=== PATIENT | male | born 1955 | race Caucasian/White ===

== ENCOUNTER 2018-06-06 16:09 | Inpatient (IN) | payer OTHER ==
[~2018-06-06] VITALS: Ht 175.3 cm; Wt 50.8 kg
--- NOTE | 2018-06-06 16:09 | NUR ---
PT BIBA BLS TO BED 10
[2018-06-06 16:16] VITALS: BP 112/80
--- NOTE | 2018-06-06 16:25 | NUR ---
Nedra pacheco in [facility] - 06/06/18 [address] UREÑA AT BEDSIDE
--- NOTE | 2018-06-06 16:26 | NUR ---
Patient being evaluated by physician at bedside.
[2018-06-06] MEDS ORDERED: NACL 0.9% 1,000 ML IV SCH (16:29)
--- NOTE | 2018-06-06 16:29 | NUR ---
JANET. PATIENT PRESENTS TO ED WITH WEAKNESS AND DIZZINESS x TODAY. PT STATES HE HAS NOT EATEN IN 2 DAYS. DENIES N/V/D; SKIN IS PINK/WARM/DRY; AAOX4 WITH EVEN AND STEADY GAIT; LUNGS CLEAR BL; HR EVEN AND REGULAR; PT DENIES ANY FEVER, CP, SOB, OR COUGH AT THIS TIME; PATIENT STATES PAIN OF 0/10 AT THIS TIME; VSS; PATIENT POSITIONED FOR COMFORT; HOB ELEVATED; BEDRAILS UP X2; BED DOWN. ER MD MADE AWARE OF PT STATUS.
[2018-06-06] MEDS ORDERED: MECLIZINE 25 MG TAB PO ONE (16:30)
--- NOTE | 2018-06-06 16:40 | NUR ---
Nedra pacheco in [facility] - 06/06/18 at [address]6 [address]
--- NOTE | 2018-06-06 16:41 | NUR ---
PT TO CT VIA KAVITA
[2018-06-06 17:21] LABS: BASOPHILS % (AUTO) 0.3 % (0.0-2.0); EOSINOPHILS % (AUTO) 0.2 % (0.0-4.0); HEMATOCRIT 32.2 % (36-52); HEMOGLOBIN 10.8 g/dL (12.0-18.0); LYMPHOCYTES % (AUTO) 26.8 % (20.5-51.1); MEAN CORPUSCULAR HEMOGLOBIN 35 pg (27-31); MEAN CORPUSCULAR HGB CONC 34 g/dL (33-37); MEAN CORPUSCULAR VOLUME 103.8 fL (80-94); MONOCYTES # (AUTO) 0.7 K/uL (0.8-1.0); MONOCYTES % (AUTO) 9.2 % (1.7-9.3); NEUTROPHILS # (AUTO) 4.7 K/uL (1.8-7.7); NEUTROPHILS % (AUTO) 63.5 % (42.2-75.2); PLATELET COUNT (AUTO) 196 K/uL (140-450); RED CELL DISTRIBUTION WIDTH 14.4 % (11.6-13.7); WHITE BLOOD COUNT (AUTO) 7.4 K/uL (4.8-10.8)
--- NOTE | 2018-06-06 17:30 | NUR ---
PATIENT RESTING COMFORTABLY.
[2018-06-06 17:43] LABS: ALBUMIN 2.5 g/dL (3.4-5.0); ANION GAP 26.1 (8-16); CARBON DIOXIDE 17.8 mmol/L (21-32); CREATININE 1.3 mg/dL (0.7-1.3); TOTAL BILIRUBIN 0.8 mg/dL (0.0-1.0)
[2018-06-06 17:48] LABS: POTASSIUM 2.9 mmol/L (3.5-5.1)
--- NOTE | 2018-06-06 18:00 | NUR ---
NOTED ABNORMALITY ON PATIENT PERINAL AREA, DR TERRAZAS INFORMED.
[2018-06-06] MEDS ORDERED: KCL 20 MEQ/WATER INJ PREMIX 200 ML IV ONE (18:25)
[2018-06-06] MEDS ORDERED: DOCUSATE SODIUM 100 MG GELCAP PO PRN (18:30)
[2018-06-06] MEDS ORDERED: HYDROcodone/APAP 7.5/325 MG 1 TAB PO PRN (18:30)
[2018-06-06] MEDS ORDERED: MORPHINE SULFATE 4 MG/ML SYR IVP PRN (18:30)
[2018-06-06] MEDS ORDERED: ONDANSETRON 4 MG/2 ML VIAL IM/IVP PRN (18:30)
[2018-06-06] MEDS ORDERED: ACETAMINOPHEN 325 MG TAB PO PRN (18:30)
[2018-06-06] MEDS ORDERED: VITA1TAB44 PO (19:00)
[2018-06-06] MEDS ORDERED: VITB1I PO (19:00)
[2018-06-06] MEDS ORDERED: OMEP40EC14 PO (19:00)
[2018-06-06] MEDS ORDERED: ASPI-1677 PO (19:00)
[2018-06-06] MEDS ORDERED: METF-350 PO (19:00)
[2018-06-06] MEDS ORDERED: MIRT30TA PO (19:00)
[2018-06-06] MEDS ORDERED: LEVE1000 PO (19:00)
[2018-06-06] MEDS ORDERED: LIPA1CAP8 PO (19:00)
[2018-06-06] MEDS ORDERED: VITD1000 PO (19:00)
[2018-06-06] MEDS ORDERED: GABA300C PO (19:02)
[2018-06-06] MEDS ORDERED: MELO15TA11 PO (19:03)
[2018-06-06] MEDS ORDERED: FERR324T11 PO (19:06)
[2018-06-06] MEDS ORDERED: MEGE40TA4 PO (19:06)
[2018-06-06] MEDS ORDERED: [UNRECOGNIZED DRUG - CODE] PO (19:06)
--- NOTE | 2018-06-06 19:11 | NUR ---
PT TAKEN TO FLOOR BY IJEOMA BROWN AND EMT GEOVANNY
[2018-06-06] MEDS ORDERED: INSU-1343 SQ (19:12)
[2018-06-06] MEDS ORDERED: LANTUS (19:12)
[2018-06-06 19:15] VITALS: BP 98/69
--- NOTE | 2018-06-06 19:15 | NUR ---
REPORT RECEIVED FROM ED NURSE AT BEDSIDE. PT IN STABLE CONDITION. AAOX4. INTRODUCED SELF TO PT. BOARD UPDATED. NO COMPLAINTS OF PAIN. NO SOB. IV SITE L WRIST 22G RUNNING NS@60ML/HR PATENT AND INTACT. SKIN WARM, DRY, AND INTACT WITH NO OPEN WOUNDS. BED LOCKED IN LOW POSITION. CALL LANGLEY WITHIN REACH. SAFETY PRECAUTIONS IN PLACE.
[2018-06-06 19:38] LABS: PROTHROMBIN TIME 12.6 secs (10.8-13.4)
[2018-06-06 19:39] LABS: APPEARANCE,URINE CLEAR (CLEAR); COLOR,URINE AMBER (YELLOW); PH,URINE 6.5 (5.0-9.0)
[2018-06-06 19:40] LABS: BILIRUBIN,URINE NEGATIVE (NEGATIVE); BLOOD, URINE NEGATIVE (NEGATIVE); LEUKOCYTE ESTERASE ,URINE NEGATIVE (NEGATIVE); NITRITE, URINE NEGATIVE (NEGATIVE); UGLUCOSE NEGATIVE (NEGATIVE)
[2018-06-06 19:44] LABS: BARBITURATE, URINE NEG. ng/ml (NEG <=200); BENZODIAZEPINE, URINE NEG. ng/mL (NEG <=200); CANNABINOID, URINE NEG. ng/mL (NEG <=50); COCAINE, URINE NEG. ng/mL (NEG <=300); OPIATE, URINE NEG. ng/mL (NEG <=2000); PHENCYCLIDINE SCREEN,URINE NEG. ng/mL (NEG <=25)
[2018-06-06 19:53] LABS: MAGNESIUM 0.9 mg/dL (1.8-2.4); PHOSPHORUS 3.6 mg/dL (2.5-4.9)
[2018-06-06 19:54] LABS: CHOL/HDL RATIO 1.7 (1-4.5); THYROID STIMULATING HORMONE 5.06 uIU/mL (0.34-3.74)
[2018-06-06] MEDS ORDERED: levETIRAcetam 500 MG TAB PO PRN (19:55)
[2018-06-06] MEDS: NACL 0.9% 1,000 ML IV SCH (20:29)
[2018-06-06] MEDS ORDERED: MAG SULF 2000 MG/WATER PREMIX 100 ML IV SCH (20:30)
[2018-06-06] MEDS ORDERED: MECLIZINE 25 MG TAB PO PRN (20:30)
[2018-06-06] MEDS ORDERED: DEXTROSE 50% 50 ML SYR IVP PRN (20:40)
--- NOTE | 2018-06-06 20:40 | NUR ---
POTASSIUM BAG 1 OF 2 HUNG AND RUNNING PIGGY BACK THROUGH 2 IV PUMPS. PT TOLERATING WELL. NO COMPLAINTS OF PAIN.
[2018-06-06] MEDS: metFORMIN 850 MG TAB PO SCH (20:45)
[2018-06-06] MEDS: levETIRAcetam 500 MG TAB PO SCH (20:45)
--- NOTE | 2018-06-06 20:45 | NUR ---
METFORMIN AND KEPPRA GIVEN PO. PT TOLERATED WELL. MAG RIDER TO BE HUNG AFTER POTASSIUM. BS 88. NO INSULIN COVERAGE NEEDED.
[2018-06-06 20:58] LABS: FREE T4 (FREE THYROXINE) 1.24 ng/dL (0.76-1.46)
[2018-06-06] MEDS: BLOOD GLUCOSE MONITORING 1 DEV DEV FS SCH (21:18)
--- NOTE | 2018-06-06 22:45 | NUR ---
POTASSIUM BAG 2 OF 2 HUNG AND RUNNING. PT TOLERATING WELL.
[2018-06-07] VITALS: BP 102/65
[2018-06-07 00:29] LABS: ANION GAP 21.1 (8-16); CARBON DIOXIDE 20.1 mmol/L (21-32); CREATININE 1.2 mg/dL (0.7-1.3); POTASSIUM 3.2 mmol/L (3.5-5.1)
[2018-06-07] MEDS ORDERED: MAGNESIUM OXIDE 400 MG TAB PO SCH ×2 (01:00→10:54)
--- NOTE | 2018-06-07 01:00 | NUR ---
MAG OX GIVEN PO. PT TOLERATED WELL.
--- NOTE | 2018-06-07 01:05 | NUR ---
MAG RIDER BAG 1 OF 2 HUNG AND RUNNING. PT TOLERATING WELL.
[2018-06-07] MEDS ORDERED: MAG SULF 2000 MG/WATER PREMIX 50 ML IV ONE (03:07)
--- NOTE | 2018-06-07 03:25 | NUR ---
MAG RIDER BAG 2 OR 2 HUNG AND RUNNING. PT TOLERATING WELL.
[2018-06-07 04:00] VITALS: BP 102/62
[2018-06-07] MEDS: NACL 0.9% 1,000 ML IV SCH ×3 (04:18→22:25)
[2018-06-07] MEDS: BLOOD GLUCOSE MONITORING 1 DEV DEV FS SCH ×4 (05:37→21:04)
--- NOTE | 2018-06-07 05:37 | NUR ---
PROTONIX GIVEN PO. PT TOLERATED WELL. BS 100. NO INSULIN COVERAGE NEEDED.
[2018-06-07] MEDS: PANTOPRAZOLE 40 MG TABEC PO SCH (05:38)
--- NOTE | 2018-06-07 05:45 | NUR ---
PT OFF THE FLOOR FOR A CHEST CT.
--- NOTE | 2018-06-07 06:15 | NUR ---
PATIENT BACK ON FLOOR. IV REINSERTED.
[2018-06-07 06:20] LABS: T4 (THYROXINE) 5.1 ug/dL (4.5-12.0)
--- NOTE | 2018-06-07 07:10 | NUR ---
REPORT GIVEN TO AM NURSE AT BEDSIDE. PT IN STABLE CONDITION.
--- NOTE | 2018-06-07 07:20 | NUR ---
RECEIVED PT ROM CHARGER OPERATOR HELPER NURSE, MAJO, PT IS AWAKE AND LYING ON THE BED, WITH SIDE RAILS UP AND CALL LIGHT WITHIN REACH. PT HAS AN IV LINE ON THE LEFT HAND G. 22 WITH NS 100ML.HR, INFUSING. NO SOB AND PT DENIES PAIN AT THIS TIME. WILL CONTINUE TO MONITOR PT.
[2018-06-07 08:00] VITALS: BP 98/58
--- NOTE | 2018-06-07 08:06 | NUR ---
PATIENT HAS BEEN SCREENED AND CATEGORIZED HIGH NUTRITION RISK. PATIENT WILL BE SEEN WITHIN 1-2 DAYS OF ADMISSION. 06/07/18-06/08/[address]
[2018-06-07 08:15] LABS: BASOPHILS % (AUTO) 0.3 % (0.0-2.0); EOSINOPHILS # (AUTO) 0.1 K/uL (0-0.4); EOSINOPHILS % (AUTO) 0.7 % (0.0-4.0); HEMATOCRIT 36.5 % (36-52); HEMOGLOBIN 12.2 g/dL (12.0-18.0); LYMPHOCYTES # (AUTO) 1.8 K/uL (2.0-11.5); LYMPHOCYTES % (AUTO) 20.6 % (20.5-51.1); MEAN CORPUSCULAR HEMOGLOBIN 34 pg (27-31); MEAN CORPUSCULAR HGB CONC 33 g/dL (33-37); MEAN CORPUSCULAR VOLUME 103.1 fL (80-94); MONOCYTES # (AUTO) 0.4 K/uL (0.8-1.0); MONOCYTES % (AUTO) 4.2 % (1.7-9.3); NEUTROPHILS # (AUTO) 6.5 K/uL (1.8-7.7); NEUTROPHILS % (AUTO) 74.2 % (42.2-75.2); PLATELET COUNT (AUTO) 188 K/uL (140-450); RED BLOOD CELL COUNT(AUTO) 3.54 MIL/uL (4.20-6.10); RED CELL DISTRIBUTION WIDTH 14.6 % (11.6-13.7); WHITE BLOOD COUNT (AUTO) 8.7 K/uL (4.8-10.8)
[2018-06-07] MEDS ORDERED: NITROGLYCERIN 0.4 MG TAB SL PRN (08:15)
--- NOTE | 2018-06-07 08:43 | NUR ---
URBANO FROM LAB CALLED AND REPORTED THE CRITICAL LAB VALUE OF THE PT, TROPONIN IS 0.074. ACKNOWLEDGED AND WILL INFORM
--- NOTE | 2018-06-07 08:50 | NUR ---
INFORMED DR. MORRISSEY OF PT'S CRITICAL TROPONIN VALUE OF 0.074, MD ACKNOWLEDGED AND MD TO SEE PAT.
[2018-06-07 08:53] LABS: ANION GAP 14.7 (8-16); POTASSIUM 3.7 mmol/L (3.5-5.1)
[2018-06-07 08:55] LABS: MAGNESIUM 2.2 mg/dL (1.8-2.4); PHOSPHORUS 1.9 mg/dL (2.5-4.9)
[2018-06-07] MEDS ORDERED: MELOXICAM 15 MG PO SCH (09:00)
[2018-06-07] MEDS ORDERED: LISINOPRIL 10 MG TAB PO SCH (09:00)
[2018-06-07] MEDS ORDERED: METOPROLOL 25 MG TAB PO SCH (09:00)
[2018-06-07] MEDS ORDERED: MAGNESIUM OXIDE 1000 MG PO SCH (09:00)
[2018-06-07] MEDS ORDERED: ASPIRIN 81 MG TAB.CHEW PO SCH (09:00)
[2018-06-07] MEDS: FERROUS GLUCONATE 324 MG TAB PO SCH (09:27)
[2018-06-07] MEDS: GABAPENTIN 300 MG CAP PO SCH ×3 (09:28→16:47)
[2018-06-07] MEDS: VIT-B COMP/VIT-C/FOLIC ACID 1 TAB PO SCH (09:28)
[2018-06-07] MEDS: metFORMIN 850 MG TAB PO SCH ×2 (09:28→21:03)
[2018-06-07] MEDS: CHOLECALCIFEROL 1,000 IU TAB PO SCH (09:29)
[2018-06-07] MEDS: ASPIRIN 81 MG TAB.CHEW PO SCH (09:30)
[2018-06-07] MEDS: levETIRAcetam 500 MG TAB PO SCH ×2 (09:30→21:03)
[2018-06-07] MEDS: MIRTAZAPINE 15 MG TAB PO SCH (09:30)
--- NOTE | 2018-06-07 09:34 | NUR ---
DR. ZARAGOZA CAME TOP THE PT'S ROOM AND SPOKE AND CHECKED THE PT, PT'S BP WAS CHECKED PRIOR TO GIVING MEDICATIONS. HOLD OFF FOR THE LISINOPRIL AND METOPROLOL BECAUSE BP IS 92/55, PULSE IS 72. DR. ZARAGOZA WAS INFORMED OF THE BP READING AND SAID TO HOLD OFF BP MEDS. ACKNOWLEDGED AND WILL CONTINUE TO MONITOR PT.
--- NOTE | 2018-06-07 10:43 | NUR ---
X-RAY OF THE RT SHOULDER IS BEING DONE TO PT NOW.
[2018-06-07 12:00] VITALS: BP 100/71
--- NOTE | 2018-06-07 14:45 | NUR ---
ULTRASOUND OF THE ABDOMEN IS BEING DONE TO THE PT NOW.
[2018-06-07 16:00] VITALS: BP 98/63
--- NOTE | 2018-06-07 16:06 | NUR ---
06/07/18 RD INITIAL ASSESSMENT COMPLETED PLEASE REFER TO NUTRITION ASSESSMENT UNDER CARE ACTIVITY FOR ESTIMATED NUTRITIONAL NEEDS. 1. CONTINUE CCHO 60 GM DIET TOLERATED 2. RECOMMEND SWALLOW EVALUATION FOR DIFFICULTY CHEWING AND SWALLOWING FOOD 3. RECOMMEND ENSURE MAX BID 4. RD TO FOLLOW-UP 2-3 DAYS, HIGH RISK ALEXIS CRUZ RD
--- NOTE | 2018-06-07 16:50 | NUR ---
PT IS AWAKE AND BLOOD GLUCOSE CHECKED WAS DONE AND RESULT IS 91, NO INSULIN COVERAGE NEEDED. PT WAS BEING ASSISTED TO THE BATHROOM BY MINDY CEDENO, PT HAD JUST FINISHED EAETING HER LUNCH AT THIS TIME.
--- NOTE | 2018-06-07 17:00 | NUR ---
PT WAS ASSISTED BY MINDY CEDENO, CLEANED AND MADE COMFORTABLE IN THE BED.
--- NOTE | 2018-06-07 18:28 | NUR ---
PT IS SLEEPING AT THIS TIME.
--- NOTE | 2018-06-07 18:58 | NUR ---
PT TOOK AND FINISHED THE ENSURE MAX DRINK AND PT WAS GIVEN A SANDWICH BECAUSE FOOD IN DINNER TRAY WAS NOT EATEN.
--- NOTE | 2018-06-07 19:10 | NUR ---
RECEIVED REPORT FROM DAY SHIFT NURSE NADIA-RN AT BEDSIDE. PT RESTING IN BED, AOX4 WITH MOMENTS OF CONFUSION. PT HAS AN IV LINE ON THE LEFT HAND G. 22 WITH NS 100ML.HR, INFUSING. ON ROOM AIR, TELE MONITORING, SKIN INTACT. AMBULATORY WITH ASSISTANCE- WALKING IN ROOM. DISCUSSED PLAN OF CARE AND PT VERBALIZED UNDERSTANDING. NO S/S OF RESPIRATORY DISTRESS OR DISCOMFORT NOTED AT THIS TIME. BED IN LOWEST POSITION, BED BREAKS ON, BOTH SIDE RAILS UP, BED ALARM ON, SEIZURE AND FALL PRECAUTIONS IN PLACE. BED SIDE TABLE AND CALL LIGHT ARE WITHIN REACH. WILL CONTINUE TO MONITOR.
[2018-06-07 20:00] VITALS: BP 106/70
--- NOTE | 2018-06-07 20:00 | NUR ---
VITAL SIGNS TAKEN AND TOLERATED WELL. BLOOD GLUCOSE 121-NO INSULIN COVERAGE NEEDED. NO S/S OF RESPIRATORY DISTRESS OR DISCOMFORT NOTED AT THIS TIME. WILL CONTINUE TO MONITOR.
--- NOTE | 2018-06-07 21:03 | NUR ---
SCHEDULED MEDICATION GIVEN AND TOLERATED WELL. NO S/S OF RESPIRATORY DISTRESS OR DISCOMFORT NOTED AT THIS TIME. WILL CONTINUE TO MONITOR.
--- NOTE | 2018-06-07 22:25 | NUR ---
NEW IVF HUNG. PT TOLERATED WELL. NO S/S OF RESPIRATORY DISTRESS OR DISCOMFORT NOTED AT THIS TIME. WILL CONTINUE TO MONITOR.
[2018-06-08] VITALS: BP 98/67
--- NOTE | 2018-06-08 | NUR ---
VITAL SIGNS TAKEN AND TOLERATED WELL. FOUND IV PUMP OFF AND BLOOD/NS LEAKING FROM IV SITE. IV NO LONGER FLUSHING. CHANGED BEDDING AND GOWN. REMOVED IV- CATHETER INTACT. CHARGE NURSE RHONDA INSERTED NEW IV SITE ON LEFT FA #24G- INFUSING WELL. NO S/S OF RESPIRATORY DISTRESS OR DISCOMFORT NOTED AT THIS TIME. WILL CONTINUE TO MONITOR.
--- NOTE | 2018-06-08 02:00 | NUR ---
PT CONTINUES TO SLEEP IN BED. NO S/S OF RESPIRATORY DISTRESS OR DISCOMFORT NOTED AT THIS TIME. WILL CONTINUE TO MONITOR.
[2018-06-08 04:00] VITALS: BP 103/68
--- NOTE | 2018-06-08 04:00 | NUR ---
VITAL SIGNS TAKEN AND TOLERATED WELL. NO S/S OF RESPIRATORY DISTRESS OR DISCOMFORT NOTED AT THIS TIME. WILL CONTINUE TO MONITOR.
[2018-06-08] MEDS: NACL 0.9% 1,000 ML IV SCH (04:56)
[2018-06-08] MEDS: PANTOPRAZOLE 40 MG TABEC PO SCH (05:30)
--- NOTE | 2018-06-08 05:30 | NUR ---
SCHEDULED MEDICATION GIVEN AND TOLERATED WELL. BLOOD GLUCOSE 95-NO INSULIN COVERAGE GIVEN. PT TOLERATED WELL. NO S/S OF RESPIRATORY DISTRESS OR DISCOMFORT NOTED AT THIS TIME. WILL CONTINUE TO MONITOR.
[2018-06-08] MEDS: BLOOD GLUCOSE MONITORING 1 DEV DEV FS SCH ×4 (05:33→21:23)
--- NOTE | 2018-06-08 07:34 | NUR ---
ENDORSED PT CARE TO DAY SHIFT NURSE ROSA-RN FOR CONTINUITY OF CARE.
--- NOTE | 2018-06-08 07:35 | NUR ---
REPORT RECIEVED FROM AWS CONSULTANT NURSE, PT SLEEPING QUIETLY IN NAD, RESP EVEN UNLABORED ON RA, AROUSES EASILY, DENIES ANY IMMEDIATE NEEDS, DENIES PAIN OR DISCOMFORT, POC REVIEWED, ALL SAFETY MEASURES IN PLACE, WILL CONTINUE TO MONITOR./
[2018-06-08 08:00] VITALS: BP 125/86
--- NOTE | 2018-06-08 08:40 | NUR ---
PT AWAKE ALERT, PT SPEAKS SLOWLY, O X4, MOVES SLOWLY ALL EXT X4, + GEN WEAKNESS, DENIES DIZZINESS OR LIGHT HEADEDNESS, DENIES CHEST PAIN, SKIN DRY SCALEY BUT INTACT, IVF INFUSING TO LEFT FA 24G, SITE WNL.
[2018-06-08] MEDS ORDERED: METOPROLOL SUCCINATE 50 MG TABER PO SCH (09:00)
[2018-06-08] MEDS: MAGNESIUM OXIDE 400 MG TAB PO SCH (09:09)
[2018-06-08] MEDS: metFORMIN 850 MG TAB PO SCH ×2 (09:09→21:16)
[2018-06-08] MEDS: levETIRAcetam 500 MG TAB PO SCH ×2 (09:11→21:16)
[2018-06-08] MEDS: VIT-B COMP/VIT-C/FOLIC ACID 1 TAB PO SCH (09:11)
[2018-06-08] MEDS: GABAPENTIN 300 MG CAP PO SCH ×3 (09:11→16:09)
[2018-06-08] MEDS: LISINOPRIL 5 MG TAB PO SCH (09:11)
[2018-06-08] MEDS: CHOLECALCIFEROL 1,000 IU TAB PO SCH (09:11)
[2018-06-08] MEDS: ASPIRIN 81 MG TAB.CHEW PO SCH (09:11)
[2018-06-08] MEDS: MIRTAZAPINE 15 MG TAB PO SCH (09:11)
[2018-06-08] MEDS: DEXT 5% / NACL 0.45% 1,000 ML IV SCH ×3 (09:19→23:32)
--- NOTE | 2018-06-08 09:19 | NUR ---
AM MEDS GIVEN, PT [place] PO PILLS WELL WITHOUT PROBLEM, PT RESTING QUIETLY IN NAD, RESP EVEN UNLABORED, DENIES ANY IMMEDIATE NEEDS, WILL CONTINUE TO MONTIOR.
[2018-06-08] MEDS: FERROUS GLUCONATE 324 MG TAB PO SCH (11:28)
[2018-06-08 12:00] VITALS: BP 107/76
--- NOTE | 2018-06-08 12:02 | NUR ---
OIL AND GAS PRINCIPAL note (bedside swallow evaluation completed) 10:35-11:25. Bedside swallow evaluation completed, please see report for details. OIL AND GAS PRINCIPAL provided pt with education regarding purpose of evaluation and rationale for recommendations. Pt verbalized understanding and agreement at this time. No family/caregivers present at this time. Recommend: 1) pureed textures (pt's baseline/preference due to ill-fitting dentures) 2) thin liquids 3) general aspiration precautions (including pt must be fully awake/alert/upright for any PO intakes, alternate small/slow bites and sips, stop giving PO if pt becomes less alert/SOB/coughing) 4) no further OIL AND GAS PRINCIPAL intervention indicated at this time. Physician may reorder if further concerns arise, as appropriate. G-codes: G1063-TX [id number] [id number] [facility] NOMS level 4. OIL AND GAS PRINCIPAL d/w RN (Renetta) prior to and following bedside swallow evaluation. OIL AND GAS PRINCIPAL also d/w battery recharger following bedside swallow evaluation.
--- NOTE | 2018-06-08 12:48 | NUR ---
PT SITTING UP EATING LUNCH PUREE, APPEARS IN NAD, DENIES PAIN OR DISCOMFORT, WILL CONTINUE TO MONTIOR
--- NOTE | 2018-06-08 13:30 | NUR ---
PT SON CALLED BACK, GÉNESIS CASTILLO [phone], VERBAL CONSENT OBTAINED FROM PATIENT TO SPEAK TO HIS SON, SON STATES HE LIVES IN [place], PATIENTS HAS RELATIVES NEARBY BUT DOES NOT GET ALONG WITH THEM, SO GÉNESIS SHOULD BE THE PRIMARY FAMILY CONTACT, GÉNESIS REPORTS THAT PT HAS CHRONIC PANCREATITIS FROM ALCOHOL ABUSE, HX SZ, TIA/CVA. WILL NOTIFY DR MORRISSEY. WILL NOTIFY ADMITTING OF FAMILY CONTACT INFO.
[2018-06-08 13:32] LABS: BASOPHILS % (AUTO) 0.4 % (0.0-2.0); EOSINOPHILS # (AUTO) 0.1 K/uL (0-0.4); EOSINOPHILS % (AUTO) 1.3 % (0.0-4.0); HEMATOCRIT 36.2 % (36-52); LYMPHOCYTES # (AUTO) 2.1 K/uL (2.0-11.5); LYMPHOCYTES % (AUTO) 31.1 % (20.5-51.1); MEAN CORPUSCULAR HEMOGLOBIN 34 pg (27-31); MEAN CORPUSCULAR HGB CONC 33 g/dL (33-37); MEAN CORPUSCULAR VOLUME 102.5 fL (80-94); MONOCYTES # (AUTO) 0.4 K/uL (0.8-1.0); MONOCYTES % (AUTO) 5.2 % (1.7-9.3); NEUTROPHILS # (AUTO) 4.2 K/uL (1.8-7.7); PLATELET COUNT (AUTO) 155 K/uL (140-450); RED BLOOD CELL COUNT(AUTO) 3.53 MIL/uL (4.20-6.10); RED CELL DISTRIBUTION WIDTH 14.3 % (11.6-13.7); WHITE BLOOD COUNT (AUTO) 6.8 K/uL (4.8-10.8)
[2018-06-08 13:43] LABS: ANION GAP 12.2 (8-16); CARBON DIOXIDE 25.9 mmol/L (21-32); CREATININE 0.9 mg/dL (0.7-1.3); POTASSIUM 3.1 mmol/L (3.5-5.1)
[2018-06-08] MEDS ORDERED: KCL 20 MEQ/WATER INJ PREMIX 100 ML IV SCH (15:00)
[2018-06-08 16:00] VITALS: BP 121/80
--- NOTE | 2018-06-08 16:30 | NUR ---
BEDSIDE GLUCOSE 139, NO INSULIN NEEDED PER SLIDING SCALE.
[2018-06-08 16:38] LABS: PHOSPHORUS 1.1 mg/dL (2.5-4.9)
[2018-06-08] MEDS ORDERED: LORazepam 1 MG TAB PO PRN (17:45)
[2018-06-08] MEDS ORDERED: MAG SULF 2000 MG/WATER PREMIX 50 ML IV SCH (18:00)
--- NOTE | 2018-06-08 18:45 | NUR ---
SCHEDULED MAG STARTED, IV SITE WNL, PT SITTING UP TALKING WITH SISTER AND BROTHER IN LAW AT BEDSIDE, DENIES IMMEDIATE NEEDS, WILL CONTINUE TO MONTIOR.
--- NOTE | 2018-06-08 19:15 | NUR ---
REPORT GIVEN TO CONTINUOUS MINER NURSE, PT IN STABLE CONDITION
--- NOTE | 2018-06-08 19:16 | NUR ---
RECEIVED REPORT FROM DAY SHIFT NURSE ROSA-RN AT BEDSIDE. PT RESTING IN BED, AOX4 WITH MOMENTS OF CONFUSION. PT HAS AN IV LINE ON THE LEFT FA #24G RUNNING NS 100ML.HR, INFUSING. ON ROOM AIR, TELE MONITORING, SKIN INTACT. AMBULATORY WITH ASSISTANCE- WALKING IN ROOM. DISCUSSED PLAN OF CARE AND PT VERBALIZED UNDERSTANDING. NO S/S OF RESPIRATORY DISTRESS OR DISCOMFORT NOTED AT THIS TIME. BED IN LOWEST POSITION, BED BREAKS ON, BOTH SIDE RAILS UP, BED ALARM ON, SEIZURE AND FALL PRECAUTIONS IN PLACE. BED SIDE TABLE AND CALL LIGHT ARE WITHIN REACH. WILL CONTINUE TO MONITOR.
[2018-06-08 20:00] VITALS: BP 100/69
--- NOTE | 2018-06-08 20:00 | NUR ---
VITAL SIGNS TAKEN AND TOLERATED WELL. BLOOD GLUCOSE 166- WILL ADMINISTER INSULIN COVERAGE. NO S/S OF RESPIRATORY DISTRESS OR DISCOMFORT NOTE AT THIS TIME. WILL CONTINUE TO MONITOR.
--- NOTE | 2018-06-08 20:10 | NUR ---
Frame Coverer Notes: I faxed to [facility] Patients clinical information, and MD Orders for Physical Therapy for short-term placement.
[2018-06-08] MEDS: SODIUM PHOS / POTASSIUM PHOS 1 PKT PDR PO SCH (21:16)
--- NOTE | 2018-06-08 21:16 | NUR ---
SCHEDULED MEDICATION GIVEN AND TOLERATED WELL. NO S/S OF RESPIRATORY DISTRESS OR DISCOMFORT NOTE AT THIS TIME. WILL CONTINUE TO MONITOR.
[2018-06-08] MEDS: INSULIN LISPRO SLIDING SCALE 100 UNITS/ML VIAL SUBQ PRN (21:23)
--- NOTE | 2018-06-08 21:23 | NUR ---
INSULIN COVERAGE GIVEN AND TOLERATED WELL. NO S/S OF RESPIRATORY DISTRESS OR DISCOMFORT NOTE AT THIS TIME. WILL CONTINUE TO MONITOR.
--- NOTE | 2018-06-08 23:32 | NUR ---
NEW BAG OF IVF HUNG. PT TOLERATED WELL. NO S/S OF RESPIRATORY DISTRESS OR DISCOMFORT NOTED AT THIS TIME. WILL CONTINUE TO MONITOR.
[2018-06-09] VITALS: BP 101/74
--- NOTE | 2018-06-09 | NUR ---
VITAL SIGNS TAKEN AND TOLERATED WELL. NO S/S OF RESPIRATORY DISTRESS OR DISCOMFORT NOTED AT THIS TIME. WILL CONTINUE TO MONITOR.
--- NOTE | 2018-06-09 02:00 | NUR ---
PT CONTINUES TO SLEEP. NO S/S OF RESPIRATORY DISTRESS OR DISCOMFORT NOTED AT THIS TIME. WILL CONTINUE TO MONITOR.
[2018-06-09 04:00] VITALS: BP 119/87
--- NOTE | 2018-06-09 04:00 | NUR ---
VITAL SIGNS TAKEN AND TOLERATED WELL. NO S/S OF RESPIRATORY DISTRESS OR DISCOMFORT NOTED AT THIS TIME. WILL CONTINUE TO MONITOR.
--- NOTE | 2018-06-09 06:00 | NUR ---
BLOOD GLUCOSE 94- NO INSULIN COVERAGE NEEDED.
[2018-06-09] MEDS: BLOOD GLUCOSE MONITORING 1 DEV DEV FS SCH ×4 (06:14→21:10)
[2018-06-09] MEDS: PANTOPRAZOLE 40 MG TABEC PO SCH (06:14)
--- NOTE | 2018-06-09 06:14 | NUR ---
SCHEDULED MEDICATION PROTONIX GIVEN AND TOLERATED WELL. NO S/S OF RESPIRATORY DISTRESS OR DISCOMFORT NOTED AT THIS TIME. WILL CONTINUE TO MONITOR.
--- NOTE | 2018-06-09 07:04 | NUR ---
ASSUMED CONTINUITY OF CARE. NO SIGNS AND SYMPTOMS OF ACUTE DISTRESS NOTED. INITIAL ASSESSMENT DONE. INITIAL ASSESSMENT DONE. KEEP COMFORTABLE ON BED. EXPLAINED DIAGNOSIS, PLAN OF CARE, PAIN MANAGEMENT TEACHING, USE OF CALL LIGHT/BED/TV/BATHROOM. VERBALIZED UNDERSTANDING. SEIZURE AND FALL PRECAUTION APPLIED. CALL LIGHT WITHIN REACH.
--- NOTE | 2018-06-09 07:04 | NUR ---
ENDORSED PT CARE TO DAY SHIFT NURSE VISH FOR CONTINUITY OF CARE.
--- NOTE | 2018-06-09 07:05 | NUR ---
Patient's Plan of Care was discussed and reviewed with TERRITORY SUPERVISOR: TOÑA DEL VALLE
[2018-06-09 07:32] LABS: MAGNESIUM 1.3 mg/dL (1.8-2.4)
[2018-06-09 07:33] LABS: ANION GAP 12.8 (8-16); CARBON DIOXIDE 26.1 mmol/L (21-32)
[2018-06-09 07:46] LABS: POTASSIUM 2.9 mmol/L (3.5-5.1)
[2018-06-09 08:00] VITALS: BP 111/80
[2018-06-09] MEDS ORDERED: KCL 20 MEQ/WATER INJ PREMIX 200 ML IV SCH (08:00)
[2018-06-09] MEDS ORDERED: MAG SULF 2000 MG/WATER PREMIX 100 ML IV SCH (08:00)
[2018-06-09 08:42] LABS: CREATININE 0.7 mg/dL (0.7-1.3)
[2018-06-09] MEDS: ASPIRIN 81 MG TAB.CHEW PO SCH (08:54)
[2018-06-09] MEDS: FERROUS GLUCONATE 324 MG TAB PO SCH (08:54)
[2018-06-09] MEDS: CHOLECALCIFEROL 1,000 IU TAB PO SCH (08:55)
[2018-06-09] MEDS: MIRTAZAPINE 15 MG TAB PO SCH (08:55)
[2018-06-09] MEDS: MAGNESIUM OXIDE 400 MG TAB PO SCH (08:55)
[2018-06-09] MEDS: METOPROLOL SUCCINATE 50 MG TABER PO SCH (08:56)
[2018-06-09] MEDS: SODIUM PHOS / POTASSIUM PHOS 1 PKT PDR PO SCH ×2 (08:56→21:09)
[2018-06-09] MEDS: metFORMIN 850 MG TAB PO SCH ×2 (08:56→16:37)
[2018-06-09] MEDS: FOLIC ACID 1 MG TAB PO SCH (08:56)
[2018-06-09] MEDS: LISINOPRIL 5 MG TAB PO SCH (08:57)
[2018-06-09] MEDS: VIT-B COMP/VIT-C/FOLIC ACID 1 TAB PO SCH (08:57)
[2018-06-09] MEDS: THIAMINE 100 MG TAB PO SCH (08:57)
[2018-06-09] MEDS: GABAPENTIN 300 MG CAP PO SCH ×3 (08:57→16:37)
[2018-06-09] MEDS: MULTIVITAMIN 1 TAB PO SCH (08:57)
[2018-06-09] MEDS: levETIRAcetam 500 MG TAB PO SCH ×2 (08:58→21:09)
[2018-06-09] MEDS ORDERED: POTASSIUM CHLORIDE 40 MEQ, LIDOCAINE MPF 1% - 5 mL VIAL 25 MG in NACL 0.9% 250 ML IV SCH (09:00)
--- NOTE | 2018-06-09 09:55 | NUR ---
WENT TO BATHROOM WITH MINIMUM ASSISTANCE. TOLERATED WELL. NO C/O PAIN. NO SOB, NOTED.
[2018-06-09 12:00] VITALS: BP 110/77
[2018-06-09] MEDS ORDERED: POTASSIUM CHLORIDE 20% 40 MEQ/15 ML UDC PO SCH (12:30)
[2018-06-09 12:56] LABS: BASOPHILS % (AUTO) 0.4 % (0.0-2.0); EOSINOPHILS # (AUTO) 0.1 K/uL (0-0.4); EOSINOPHILS % (AUTO) 1.2 % (0.0-4.0); HEMATOCRIT 31.2 % (36-52); HEMOGLOBIN 10.5 g/dL (12.0-18.0); LYMPHOCYTES # (AUTO) 2.5 K/uL (2.0-11.5); LYMPHOCYTES % (AUTO) 36.3 % (20.5-51.1); MEAN CORPUSCULAR HEMOGLOBIN 34 pg (27-31); MEAN CORPUSCULAR HGB CONC 34 g/dL (33-37); MEAN CORPUSCULAR VOLUME 102.4 fL (80-94); MONOCYTES # (AUTO) 0.4 K/uL (0.8-1.0); MONOCYTES % (AUTO) 5.5 % (1.7-9.3); NEUTROPHILS # (AUTO) 3.9 K/uL (1.8-7.7); NEUTROPHILS % (AUTO) 56.6 % (42.2-75.2); PLATELET COUNT (AUTO) 141 K/uL (140-450); RED BLOOD CELL COUNT(AUTO) 3.05 MIL/uL (4.20-6.10); RED CELL DISTRIBUTION WIDTH 14.2 % (11.6-13.7); WHITE BLOOD COUNT (AUTO) 6.9 K/uL (4.8-10.8)
[2018-06-09] MEDS ORDERED: MAGNESIUM SULFATE 4GM in STERILE WATER 100 ML PREMIX IV SCH (13:00)
[2018-06-09] MEDS: DEXT 5% / NACL 0.45% 1,000 ML IV SCH (14:00)
--- NOTE | 2018-06-09 14:00 | NUR ---
Tabber Notes: I attempted to contact Patient's son Josh Morales at to discuss patient discharge to [facility] in [place] per his request. Mr. Morales did not respond and was not available, therefore these instructional writer left him several MGS to voicemail with my my direct contact number and request for a call back.
--- NOTE | 2018-06-09 14:20 | NUR ---
Deputy Of Counter Intelligence Notes: I faxed patient's clinical information and MD order to [facility] at for short-term placement for Physical Therapy per Patient's and son's Josh Morales request.
[2018-06-09 14:42] LABS: ANION GAP 12.9 (8-16); CARBON DIOXIDE 28.1 mmol/L (21-32); CREATININE 0.7 mg/dL (0.7-1.3)
--- NOTE | 2018-06-09 15:30 | NUR ---
Client Program Manager Notes: Patient's son Josh Morales call me back to discuss patient's status with discharge to [facility] [place]. I informed Mr. Morales that inquiry has been send and facility intake staff Doc at has call me back confirming they received my fax and stated that he is currently reviewing clinical information and when patient is accepted he will call me back with a room number. Mr. Morales was content with information provided by these script writer, thanked me for the calls, assistance, and communication.
[2018-06-09 16:00] VITALS: BP 105/74
--- NOTE | 2018-06-09 16:32 | NUR ---
Senior Solutions Consultant Notes: Doc from intake at [facility] call me back stating that they are accepting Patient to their facility when she is ready for discharge to room 102D. Per Doc they will need prior to D/C a report from nursing and a call with time set up for patient transport to their facility. These newspaper writer provided Doc with telle unit information. Charge Nurse Karin was made aware.
[2018-06-09] MEDS: INSULIN LISPRO SLIDING SCALE 100 UNITS/ML VIAL SUBQ PRN (16:38)
--- NOTE | 2018-06-09 16:51 | NUR ---
SPOKE WITH DR. ECHEVARRIA REGARDING THE BED AVAILABILITY FOR PT AT [facility], PER DR. ECHEVARRIA PT IS NOT READY FOR DISCHARGE TODAY.
--- NOTE | 2018-06-09 19:11 | NUR ---
BEDSIDE REPORT GIVEN TO LAUREN DWYER. IVF INFUSING WELL. IN STABLE CONDITION.
--- NOTE | 2018-06-09 19:12 | NUR ---
RECD. RESTING IN BED, AWAKE, A/OX3, RESPIRATION EVEN AND UNLABORED. IV OF D51/2 NS AT 100 ML/HR INFUSING, RIGHT FOREARM #24. PLAN OF CARE FOR THE SHIFT DISCUSSED. VERBALIZED UNDERSTANDING. SAFETY MEASURES ENFORCED. SIDE RAILS PADDED FOR SEIZURE PRECAUTION. DENIES PAIN 0/10.
[2018-06-09 20:00] VITALS: BP 108/68
--- NOTE | 2018-06-09 20:00 | NUR ---
Patient's Plan of Care was discussed and reviewed with ARINA: LAUREN
--- NOTE | 2018-06-09 21:09 | NUR ---
DUE PO MEDICATIONS GIVEN, TOLERATED WELL. SNACK FOR THE NIGHT GIVEN. ATE 100%.
--- NOTE | 2018-06-09 23:00 | NUR ---
HAD LOOSE BM FOR THE SECOND TIME, MODERATE AMOUNT, YELLOW BROWNISH COLOR. STATED HE HAD 5 TIMES LOOSE BM IN THIS MORNING. INFORMED DR. BERG, WILL ORDER MEDICATION.
[2018-06-09] MEDS ORDERED: LOPERAMIDE 2 MG CAP PO PRN (23:05)
[2018-06-10] VITALS: BP_SYST 106; BP_SYST 94; BP_SYST 96; BP_DIAS 60; BP_DIAS 61; BP_DIAS 65
--- NOTE | 2018-06-10 | NUR ---
SLEEPING COMFORTABLY IN BED.
[2018-06-10] MEDS: DEXT 5% / NACL 0.45% 1,000 ML IV SCH ×3 (00:47→17:06)
--- NOTE | 2018-06-10 00:47 | NUR ---
MEDICATED WITH IMODIUM 2 MG. PO FOR LOOSE BM.
[2018-06-10 04:00] VITALS: BP 133/89
--- NOTE | 2018-06-10 04:00 | NUR ---
SLEEPING IN BED, NO MORE DIARRHEA NOTED.
[2018-06-10] MEDS: PANTOPRAZOLE 40 MG TABEC PO SCH (06:24)
[2018-06-10] MEDS: BLOOD GLUCOSE MONITORING 1 DEV DEV FS SCH ×4 (06:29→21:09)
--- NOTE | 2018-06-10 06:50 | NUR ---
CONDITION REMAIN STABLE. SAFETY MAINTAINED DURING THE SHIFT. WILL ENDORSED TO AM NURSE FOR CONTINUITY OF CARE.
--- NOTE | 2018-06-10 07:05 | NUR ---
ENDORSED TO ARINA DING FOR CONTINUITY OF CARE.
--- NOTE | 2018-06-10 07:05 | NUR ---
ASSUMED CONTINUITY OF CARE. NO SIGNS AND SYMPTOMS OF ACUTE DISTRESS NOTED. INITIAL ASSESSMENT DONE. KEEP COMFORTABLE ON BED. EXPLAINED DIAGNOSIS, PLAN OF CARE, PAIN MANAGEMENT TEACHING, USE OF CALL LIGHT/BED/TV/BATHROOM. VERBALIZED UNDERSTANDING. SEIZURE AND FALL PRECAUTION APPLIED. CALL LIGHT WITHIN REACH.
--- NOTE | 2018-06-10 07:06 | NUR ---
Patient's Plan of Care was discussed and reviewed with MEDIA ANALYTICS MANAGER: TOÑA DEL VALLE
[2018-06-10 08:00] VITALS: BP 122/89
[2018-06-10] MEDS: metFORMIN 850 MG TAB PO SCH ×2 (08:22→16:42)
[2018-06-10] MEDS: VIT-B COMP/VIT-C/FOLIC ACID 1 TAB PO SCH (08:23)
[2018-06-10] MEDS: FERROUS GLUCONATE 324 MG TAB PO SCH (08:23)
[2018-06-10] MEDS: MAGNESIUM OXIDE 400 MG TAB PO SCH (08:24)
[2018-06-10] MEDS: levETIRAcetam 500 MG TAB PO SCH ×2 (08:25→21:08)
[2018-06-10] MEDS: CHOLECALCIFEROL 1,000 IU TAB PO SCH (08:26)
[2018-06-10] MEDS: MIRTAZAPINE 15 MG TAB PO SCH (08:26)
[2018-06-10] MEDS: FOLIC ACID 1 MG TAB PO SCH (08:27)
[2018-06-10] MEDS: GABAPENTIN 300 MG CAP PO SCH ×3 (08:27→16:42)
[2018-06-10] MEDS: METOPROLOL SUCCINATE 50 MG TABER PO SCH (08:28)
[2018-06-10] MEDS: LISINOPRIL 5 MG TAB PO SCH (08:28)
[2018-06-10] MEDS: THIAMINE 100 MG TAB PO SCH (08:28)
[2018-06-10] MEDS: ASPIRIN 81 MG TAB.CHEW PO SCH (08:28)
[2018-06-10] MEDS: MULTIVITAMIN 1 TAB PO SCH (08:28)
[2018-06-10] MEDS ORDERED: POTASSIUM PHOSPHATE 15 MM in NACL 0.9% 250 ML IV SCH (09:00)
[2018-06-10 12:00] VITALS: BP 95/64
[2018-06-10 12:19] LABS: ALBUMIN 1.9 g/dL (3.4-5.0); ANION GAP 9.5 (8-16); CARBON DIOXIDE 30.8 mmol/L (21-32); CREATININE 0.6 mg/dL (0.7-1.3); MAGNESIUM 1.2 mg/dL (1.8-2.4); PHOSPHORUS 1.8 mg/dL (2.5-4.9); POTASSIUM 4.3 mmol/L (3.5-5.1); TOTAL BILIRUBIN 0.4 mg/dL (0.0-1.0)
[2018-06-10 13:00] LABS: BASOPHILS % (AUTO) 0.5 % (0.0-2.0); EOSINOPHILS # (AUTO) 0.1 K/uL (0-0.4); EOSINOPHILS % (AUTO) 0.7 % (0.0-4.0); HEMATOCRIT 33.6 % (36-52); HEMOGLOBIN 11.3 g/dL (12.0-18.0); LYMPHOCYTES # (AUTO) 2.5 K/uL (2.0-11.5); LYMPHOCYTES % (AUTO) 31.9 % (20.5-51.1); MEAN CORPUSCULAR HEMOGLOBIN 35 pg (27-31); MEAN CORPUSCULAR HGB CONC 34 g/dL (33-37); MEAN CORPUSCULAR VOLUME 102.4 fL (80-94); MONOCYTES # (AUTO) 0.6 K/uL (0.8-1.0); MONOCYTES % (AUTO) 7.3 % (1.7-9.3); NEUTROPHILS # (AUTO) 4.6 K/uL (1.8-7.7); NEUTROPHILS % (AUTO) 59.6 % (42.2-75.2); PLATELET COUNT (AUTO) 160 K/uL (140-450); RED BLOOD CELL COUNT(AUTO) 3.28 MIL/uL (4.20-6.10); RED CELL DISTRIBUTION WIDTH 14.2 % (11.6-13.7); WHITE BLOOD COUNT (AUTO) 7.7 K/uL (4.8-10.8)
[2018-06-10 16:00] VITALS: BP 106/66
--- NOTE | 2018-06-10 16:00 | NUR ---
PONCE CHICAS CAME AND SEEN PT.
[2018-06-10] MEDS: INSULIN LISPRO SLIDING SCALE 100 UNITS/ML VIAL SUBQ PRN ×2 (16:42→21:32)
--- NOTE | 2018-06-10 17:10 | NUR ---
06/10/18 RD FOLLOW UP COMPLETED PLEASE REFER TO NUTRITION ASSESSMENT UNDER CARE ACTIVITY FOR ESTIMATED NUTRITIONAL NEEDS. RD RECOMMENDATIONS: 1. CONTINUE PUREE CCHO 60 GM DIET TOLERATED 2. RECOMMEND CONTINUE ENSURE MAX BID 3. RD TO FOLLOW-UP 3-5 DAYS, MODERATE RISK RADHA ADKINS MBA, RD
[2018-06-10] MEDS ORDERED: SODIUM PHOSPHATE 15 MMOLE in NACL 0.9% 250 ML IV SCH (18:15)
[2018-06-10] MEDS ORDERED: MAG SULF 2000 MG/WATER PREMIX 100 ML IV SCH (18:15)
--- NOTE | 2018-06-10 19:04 | NUR ---
REPORT GIVEN TO LAUREN DWYER. IVF INFUSING WELL. IN STABLE CONDITION. ALSO ENDORSED TO INFUSE 2ND BAG OF MAGNESIUM 2 GM IVPB, AND SODIUM PHOSPHATE 15 MMOLE IN SODIUM CHLORIDE 250 ML IV PER MD ORDER.
--- NOTE | 2018-06-10 19:05 | NUR ---
RECD. RESTING IN BED, AWAKE, A/OX3. RESPIRATION EVEN AND UNLABORED. MAGNESIUM 2GM IVPB INFUSING AT 25 ML/HR, RIGHT FOREARM G24. PLAN OF CARE FOR THE SHIFT DISCUSSED. VERBALIZED UNDERSTANDING. SAFETY MEASURES ENFORCED, SIDE RAILS PADDED. DENIES PAIN 0/10.
[2018-06-10 20:00] VITALS: BP 104/77
--- NOTE | 2018-06-10 20:35 | NUR ---
CALLED TELE PHARMACY HOW TO MIX/PREPARE SODIUM PHOSPHATE IVPB, INSTRUCTED TO FIND SOMEBODY ON THE FLOOR WHO CAN DO IT, IF NOT CALL PHARMACIST SHAPER OPERATOR. INFORMED CHARGE NURSE PRABHU.
--- NOTE | 2018-06-10 20:40 | NUR ---
INFORMED DR. BERG REGARDING SODIUM PHOSPHATE IVPB ORDERED AT 1800 THAT IS NOT ON THE FLOOR YET BECAUSE PHARMACY IS ALREADY CLOSED, 1ST BAG OF MAGNESIUM IS STILL INFUSING AT THIS TIME. STATED HOLD SODIUM PHOSPHATE, JUST GIVE SCHEDULED NEUTRA-PHOS.
[2018-06-10] MEDS: SODIUM PHOS / POTASSIUM PHOS 1 PKT PDR PO SCH (21:08)
--- NOTE | 2018-06-10 21:08 | NUR ---
DUE PO MEDICATIONS GIVEN, TOLERATED WELL. NO S/S OF ASPIRATION NOTED. SNACK GIVEN, ATE 50%.
[2018-06-11] VITALS: BP 90/62
--- NOTE | 2018-06-11 | NUR ---
SLEEPING COMFORTABLY IN BED.
[2018-06-11 04:00] VITALS: BP 96/61
--- NOTE | 2018-06-11 04:00 | NUR ---
STILL SLEEPING COMFORTABLY. NO DISTRESS NOTED.
[2018-06-11] MEDS: PANTOPRAZOLE 40 MG TABEC PO SCH (06:22)
--- NOTE | 2018-06-11 06:22 | NUR ---
WAKEN UP TO TAKE THE MORNING PROTONIX. TOLERATED WELL.
[2018-06-11] MEDS: DEXT 5% / NACL 0.45% 1,000 ML IV SCH (06:25)
[2018-06-11] MEDS: BLOOD GLUCOSE MONITORING 1 DEV DEV FS SCH ×3 (06:27→16:41)
[2018-06-11 06:58] LABS: BASOPHILS # (AUTO) 0.1 K/uL (0.00-0.22); EOSINOPHILS # (AUTO) 0.1 K/uL (0-0.4); EOSINOPHILS % (AUTO) 1.3 % (0.0-4.0); HEMATOCRIT 35.9 % (36-52); LYMPHOCYTES # (AUTO) 3.4 K/uL (2.0-11.5); LYMPHOCYTES % (AUTO) 39.7 % (20.5-51.1); MEAN CORPUSCULAR HEMOGLOBIN 34 pg (27-31); MEAN CORPUSCULAR HGB CONC 33 g/dL (33-37); MEAN CORPUSCULAR VOLUME 102.4 fL (80-94); MONOCYTES # (AUTO) 0.6 K/uL (0.8-1.0); MONOCYTES % (AUTO) 7.4 % (1.7-9.3); NEUTROPHILS # (AUTO) 4.4 K/uL (1.8-7.7); NEUTROPHILS % (AUTO) 50.6 % (42.2-75.2); PLATELET COUNT (AUTO) 175 K/uL (140-450); RED BLOOD CELL COUNT(AUTO) 3.51 MIL/uL (4.20-6.10); RED CELL DISTRIBUTION WIDTH 14.4 % (11.6-13.7); WHITE BLOOD COUNT (AUTO) 8.7 K/uL (4.8-10.8)
[2018-06-11 07:12] LABS: ANION GAP 10.5 (8-16); CARBON DIOXIDE 29.7 mmol/L (21-32); CREATININE 0.6 mg/dL (0.7-1.3); POTASSIUM 4.2 mmol/L (3.5-5.1)
[2018-06-11 07:16] LABS: MAGNESIUM 1.9 mg/dL (1.8-2.4)
--- NOTE | 2018-06-11 07:30 | NUR ---
ENDORSED TO IJEOMA CAMILO FOR CONTINUITY OF CARE.
--- NOTE | 2018-06-11 07:31 | NUR ---
RECEIVED REPORT FROM THE BISQUE BRUSHER NURSE AT BEDSIDE FOR CONTINUITY OF CARE. PT IS SLEEPING. PER BISQUE BRUSHER NURSE, PT AMBULATES WITH ASSIST. SKIN INTACT. LBM 06/09. IV ON R FA 24G, D5 1/2 NS AT 100ML. NO SIGNS OF DISTRESS. WILL CONTINUE TO MONITOR PT.
--- NOTE | 2018-06-11 07:45 | NUR ---
WOKE UP PT TO DO V/S. PT IS AWAKE AND ORIENTED. INTRODUCED MYSELF AND UPDATED THE BOARD. V/S WITHIN NORMAL RANGE. DENIES PAIN. ALL NEEDS MET. CALL LIGHT WITHIN REACH. WILL CONTINUE TO MONITOR PT.
[2018-06-11 08:00] VITALS: BP 99/63
--- NOTE | 2018-06-11 08:55 | NUR ---
P/T HERE TO ASSESS PT. ASSISTED PT TO THE BATHROOM AND BACK.
[2018-06-11] MEDS: LISINOPRIL 5 MG TAB PO SCH (09:00)
[2018-06-11] MEDS: METOPROLOL SUCCINATE 50 MG TABER PO SCH (09:00)
[2018-06-11] MEDS: CHOLECALCIFEROL 1,000 IU TAB PO SCH (09:46)
[2018-06-11] MEDS: levETIRAcetam 500 MG TAB PO SCH (09:46)
[2018-06-11] MEDS: VIT-B COMP/VIT-C/FOLIC ACID 1 TAB PO SCH (09:47)
[2018-06-11] MEDS: FOLIC ACID 1 MG TAB PO SCH (09:47)
[2018-06-11] MEDS: SODIUM PHOS / POTASSIUM PHOS 1 PKT PDR PO SCH (09:47)
[2018-06-11] MEDS: THIAMINE 100 MG TAB PO SCH (09:48)
[2018-06-11] MEDS: MAGNESIUM OXIDE 400 MG TAB PO SCH (09:48)
[2018-06-11] MEDS: MULTIVITAMIN 1 TAB PO SCH (09:48)
[2018-06-11] MEDS: MIRTAZAPINE 15 MG TAB PO SCH (09:48)
[2018-06-11] MEDS: FERROUS GLUCONATE 324 MG TAB PO SCH (09:48)
[2018-06-11] MEDS: metFORMIN 850 MG TAB PO SCH ×2 (09:49→16:58)
[2018-06-11] MEDS: GABAPENTIN 300 MG CAP PO SCH ×3 (09:49→16:58)
[2018-06-11] MEDS: ASPIRIN 81 MG TAB.CHEW PO SCH (09:49)
--- NOTE | 2018-06-11 09:55 | NUR ---
ADMINISTERED MORNING MEDS. HELD 2 BP MEDS D/T LOW BP. PT TOLERATED WELL. WILL CONTINUE TO MONITOR PT. P/T WAS HERE EARLIER. HYPOTENSIVE AND TACHYCARDIC. PT C/O FEELING LIGHT HEADED. BACK INTO BACK. WILL NOTIFY MD. WILL CONTINUE TO MONITOR PT.
[2018-06-11] MEDS ORDERED: [UNRECOGNIZED DRUG - CODE] (11:14)
[2018-06-11] MEDS ORDERED: METO25TE2 PO (11:16)
[2018-06-11] MEDS ORDERED: LISI-424 PO (11:16)
[2018-06-11] MEDS ORDERED: MAGN400T7 PO (11:17)
--- NOTE | 2018-06-11 11:20 | NUR ---
PT SLEEPING. NO SIGNS OF DISTRESS. WILL CONTINUE TO MONITOR PT.
[2018-06-11] MEDS ORDERED: NACL 0.9% 1,000 ML IV SCH (11:25)
[2018-06-11 12:00] VITALS: BP 118/81
[2018-06-11] MEDS: INSULIN LISPRO SLIDING SCALE 100 UNITS/ML VIAL SUBQ PRN ×2 (12:02→17:04)
--- NOTE | 2018-06-11 13:19 | NUR ---
SPOKE WITH COLLEEN AT [facility]. THE PATIENT CAN GO TO ROOM 102D UNDER DR. Evangelina OCONNOR./ I CALLED [facility] AND SET UP TRANSPORT FOR 4:30P.M. I CALLED THE SON, ROE, AND LEFT A MESSAGE IF HE COULD PAY FOR TRANSPORT. NO CALL BACK YET. I CALLED TON RAPHAEL AND INFORMED HER OF THE PICKUP TIME. PHONE TO [facility] IS [phone]. COST FOR TRANSPORT, WC, IS $57.50.
--- NOTE | 2018-06-11 14:48 | NUR ---
CALLED [facility] SP[facility], SPOKE TO IJEOMA MERRITT. GAVE REPORT. THEY ARE AWARE THAT [facility] IS COMING AT 1630.
[2018-06-11] MEDS ORDERED: INFLUENZA VIRUS VACCINE QUAD 0.5 ML SYR IMVAC PRN (14:55)
[2018-06-11] MEDS ORDERED: PNEUMOCOCCAL VACCINE 23 MCG/0.5 ML VIAL IMVAC SCH (14:55)
--- NOTE | 2018-06-11 15:39 | NUR ---
ADMINISTERED FLU AND PNA VACCINATIONS. ONE ON EACH ARM. PT TOLERATED WELL.
[2018-06-11 16:00] VITALS: BP 104/74
--- NOTE | 2018-06-11 17:07 | NUR ---
DISCHARGE INSTRUCTIONS GIVEN. ANSWERED ALL QUESTIONS. REMOVED IV, ID BANDS. CHANGED TO HIS CLOTHES. GAVE LAST MEDS. PT TOLERATED WELL. ALL PERSONAL BELONGINGS IN BAGS. ALL READY FOR [facility].
--- NOTE | 2018-06-11 18:30 | NUR ---
PT WHEELED OUT IN A WHEELCHAIR BY REBEKA. ALL PERSONAL BELONGINGS INCLUDING FWW WITH PT. PT IN STABLE CONDITION.
== END 2018-06-11 18:30 | DRG 280 ==
LOC: MED 16:09 → MTU 18:29
PROVIDERS: ADMIT Family Medicine; ATTEND Family Medicine
PROC: 3E0234Z Introduction of Serum, Toxoid and Vaccine into Muscle, Percutaneous Approach (ICD-10-PCS; principal; 2018-06-11)
DX: I21.A1 Myocardial infarction type 2 (principal); E43 Unspecified severe protein-calorie malnutrition; Z68.1 Body mass index [BMI] 19.9 or less, adult; I50.20 Unspecified systolic (congestive) heart failure; G90.9 Disorder of the autonomic nervous system, unspecified; I95.1 Orthostatic hypotension; E87.6 Hypokalemia; E83.42 Hypomagnesemia; R13.10 Dysphagia, unspecified; E83.39 Other disorders of phosphorus metabolism; F32.9 Major depressive disorder, single episode, unspecified; G40.909 Epilepsy, unspecified, not intractable, without status epilepticus; E11.40 Type 2 diabetes mellitus with diabetic neuropathy, unspecified; W18.30XA Fall on same level, unspecified, initial encounter; K59.00 Constipation, unspecified; R74.0 Nonspecific elevation of levels of transaminase and lactic acid dehydrogenase [LDH]; E83.51 Hypocalcemia; E86.1 Hypovolemia; I25.10 Atherosclerotic heart disease of native coronary artery without angina pectoris; E11.65 Type 2 diabetes mellitus with hyperglycemia; E02 Subclinical iodine-deficiency hypothyroidism; I11.0 Hypertensive heart disease with heart failure; Z79.4 Long term (current) use of insulin; Z79.82 Long term (current) use of aspirin; Z79.899 Other long term (current) drug therapy; Z87.891 Personal history of nicotine dependence; Y93.89 Activity, other specified; Y92.89 Other specified places as the place of occurrence of the external cause; Y99.8 Other external cause status; Z90.49 Acquired absence of other specified parts of digestive tract; Z23 Encounter for immunization; Z85.07 Personal history of malignant neoplasm of pancreas; Z90.411 Acquired partial absence of pancreas
CPT/HCPCS: 36415; 70450; 71045; 71046; 73030; 74018; 76705; 80048; 80053; 80305; 81003; 82140; 82150; 82550; 82948; 83036; 83615; 83690; 83735; 83880; 84100; 84436; 84439; 84443; 84484; 85025; 85610; 85730; 87081; 90658; 90732; 92610; 93005; 93880; 97110; 97116; 97530; 99285; J1815; J2001; J3475; J3480; J7030; J7042; J8597; Q0092

== ENCOUNTER 2018-07-16 12:10 | Inpatient (IN) | payer OTHER ==
[~2018-07-16] VITALS: Ht 170.2 cm; Wt 49.9 kg
[~2018-07-16 12:10] MED LIST: ASPI-1677 PO; FERR324T11 PO; GABA300C PO; INSU-1343 SQ; LANTUS; LEVE1000 PO; LIPA1CAP8 PO; LISI-424 PO; MAGN400T7 PO; MELO15TA11 PO; METF-350 PO; METO25TE2 PO; MIRT30TA PO; OMEP40EC14 PO; VITA1TAB44 PO; VITB1I PO; VITD1000 PO; [UNRECOGNIZED DRUG - CODE]; [UNRECOGNIZED DRUG - CODE] PO
--- NOTE | 2018-07-16 12:10 | NUR ---
PT JANET BLS TO ER BED 07
[2018-07-16 12:12] VITALS: BP 89/62
--- NOTE | 2018-07-16 12:49 | NUR ---
PATIENT PRESENTS TO ED WITH BLE EDEMA AND HYPOTENSION. PT STATES THE EDEMEA HAS PROGRESSED UP HIS LEGS AND SUSHMA HIS SCROTUM. DENIES N/V/D; SKIN IS PINK/WARM/DRY; AAOX4; HR EVEN AND REGULAR; PT DENIES ANY FEVER, CP, SOB, OR COUGH AT THIS TIME; PATIENT STATES PAIN OF 0/10 AT THIS TIME; VSS; PATIENT POSITIONED FOR COMFORT; HOB ELEVATED; BEDRAILS UP X2; BED DOWN. ER MD MADE AWARE OF PT STATUS.
[2018-07-16 12:55] LABS: BASOPHILS # (AUTO) 0.1 K/uL (0.00-0.22); BASOPHILS % (AUTO) 1.3 % (0.0-2.0); EOSINOPHILS % (AUTO) 0.1 % (0.0-4.0); HEMATOCRIT 25.8 % (36-52); HEMOGLOBIN 8.7 g/dL (12.0-18.0); LYMPHOCYTES # (AUTO) 2.4 K/uL (2.0-11.5); LYMPHOCYTES % (AUTO) 23.1 % (20.5-51.1); MEAN CORPUSCULAR HEMOGLOBIN 34 pg (27-31); MEAN CORPUSCULAR HGB CONC 34 g/dL (33-37); MEAN CORPUSCULAR VOLUME 100.1 fL (80-94); MONOCYTES # (AUTO) 0.4 K/uL (0.8-1.0); MONOCYTES % (AUTO) 3.4 % (1.7-9.3); NEUTROPHILS # (AUTO) 7.6 K/uL (1.8-7.7); NEUTROPHILS % (AUTO) 72.1 % (42.2-75.2); PLATELET COUNT (AUTO) 359 K/uL (140-450); RED BLOOD CELL COUNT(AUTO) 2.58 MIL/uL (4.20-6.10); WHITE BLOOD COUNT (AUTO) 10.6 K/uL (4.8-10.8)
[2018-07-16] MEDS ORDERED: NACL 0.9% 1,000 ML IV ONE (12:55)
[2018-07-16 13:24] LABS: PROTHROMBIN TIME 13.3 secs (10.8-13.4)
[2018-07-16 13:42] LABS: ANION GAP 10.7 (8-16); CARBON DIOXIDE 26.8 mmol/L (21-32); CREATININE 0.6 mg/dL (0.7-1.3); POTASSIUM 4.5 mmol/L (3.5-5.1)
[2018-07-16 13:55] LABS: ALBUMIN 1.1 g/dL (3.4-5.0)
[2018-07-16] MEDS ORDERED: ONDANSETRON 4 MG/2 ML VIAL IVP PRN (14:00)
[2018-07-16] MEDS ORDERED: ACETAMINOPHEN 325 MG TAB PO PRN (14:00)
[2018-07-16] MEDS ORDERED: HYDROcodone/APAP 7.5/325 MG 1 TAB PO PRN (14:00)
--- NOTE | 2018-07-16 14:05 | NUR ---
ADMISSION ORDERS RECIEVED
--- NOTE | 2018-07-16 14:28 | NUR ---
PT TAKEN TO FLOOR
[2018-07-16] MEDS ORDERED: INSULIN LISPRO SLIDING SCALE 100 UNITS/ML VIAL SUBQ PRN (14:30)
[2018-07-16] MEDS ORDERED: DEXTROSE 50% 50 ML SYR IVP PRN (14:30)
[2018-07-16 14:32] LABS: APPEARANCE,URINE HAZY (CLEAR); BILIRUBIN,URINE NEGATIVE (NEGATIVE); BLOOD, URINE NEGATIVE (NEGATIVE); COLOR,URINE AMBER (YELLOW); LEUKOCYTE ESTERASE ,URINE TRACE (NEGATIVE); NITRITE, URINE NEGATIVE (NEGATIVE); UGLUCOSE NEGATIVE (NEGATIVE)
[2018-07-16 14:36] LABS: BARBITURATE, URINE NEG. ng/ml (NEG <=200); BENZODIAZEPINE, URINE NEG. ng/mL (NEG <=200); CANNABINOID, URINE NEG. ng/mL (NEG <=50); COCAINE, URINE NEG. ng/mL (NEG <=300); OPIATE, URINE NEG. ng/mL (NEG <=2000); PHENCYCLIDINE SCREEN,URINE NEG. ng/mL (NEG <=25)
[2018-07-16 14:39] LABS: RBC,URINE NONE SEEN /HPF (0-5)
[2018-07-16 14:48] LABS: CHOL/HDL RATIO 3.9 (1-4.5); FREE T4 (FREE THYROXINE) 1.12 ng/dL (0.76-1.46); MAGNESIUM 1.2 mg/dL (1.8-2.4); PHOSPHORUS 3.6 mg/dL (2.5-4.9); THYROID STIMULATING HORMONE 7.83 uIU/mL (0.34-3.74)
--- NOTE | 2018-07-16 14:48 | NUR ---
REPORT GIVEN TO M/S IJEOMA RICHARD. PATIENT STABLE ON TIME OF TRANSFER
[2018-07-16] MEDS ORDERED: MAG SULF 2000 MG/WATER PREMIX 50 ML IV ONE (15:00)
--- NOTE | 2018-07-16 15:00 | NUR ---
RECEIVED PT FROM ER NURSE. PT IS AWAKE AND A&O X 4, IN BED. NO S/S OF ACUTE DISTRESS, SOB, OR C/O PAIN NOTED. PT IS NOT AMBULATORY. 2+ PITTING EDEMA NOTED ON BILATERAL FEET. PT IS ON ROOM AIR. SKIN IS INTACT. TWO IV SITES NOTED ON R AC AND L AC, BOTH 20 GAUGE, INTACT AND PATENT. PT STATES HE ALREADY HAD THE FLU VACCINE THIS SEASON. FALL AND SEIZURE PRECAUTIONS ARE IN PLACE, PT HAS A HX OF SEIZURES. MRSA NASAL SWAB TAKEN. CALL LIGHT WITHIN REACH. WILL CONTINUE TO MONITOR.
[2018-07-16] MEDS ORDERED: TAMS0.4C96 PO (15:02)
[2018-07-16] MEDS: NACL 0.9% 1,000 ML IV SCH (15:05)
[2018-07-16] MEDS ORDERED: ALBUTEROL SULFATE/IPRATROPIU 3 ML SOL IH PRN (16:00)
[2018-07-16] MEDS: BLOOD GLUCOSE MONITORING 1 DEV DEV FS SCH ×2 (16:30→21:36)
[2018-07-16] MEDS ORDERED: MIRTAZAPINE 15 MG TAB PO SCH (17:00)
--- NOTE | 2018-07-16 18:00 | NUR ---
PT'S FAMILY ARE VISITING AT BEDSIDE. PT EATING DINNER AT THIS TIME. NO C/O DISTRESS, SOB, OR PAIN. CONTINUING TO MONITOR.
[2018-07-16] MEDS: ALBUTEROL SULFATE/IPRATROPIU 3 ML SOL IH SCH (19:10)
--- NOTE | 2018-07-16 19:35 | NUR ---
PT ENDORSED TO HOME HEALTH CARE COORDINATOR NURSE IN STABLE CONDITION.
--- NOTE | 2018-07-16 19:35 | NUR ---
RECEIVED REPORT FROM JOSE MANUEL RAPHAEL DAYSHIFT NURSE, AT BEDSIDE FOR CONTINUITY OF CARE, PT IN STABLE CONDITION.
[2018-07-16] MEDS: metFORMIN 850 MG TAB PO SCH (19:54)
[2018-07-16] MEDS: GABAPENTIN 300 MG CAP PO SCH (19:54)
[2018-07-16] MEDS: AMYLASE/LIPASE/PROTEASE 1 CAPDR PO SCH (19:54)
[2018-07-16] MEDS: MAGNESIUM SULFATE 1GM in DEXTROSE 5% 100 ML PREMIX IV SCH ×2 (19:57→21:30)
[2018-07-16 20:55] VITALS: BP 94/64
--- NOTE | 2018-07-16 21:00 | NUR ---
PT RECEIVED IV MAGNESIUM SULFATE WELL COLACE AND KEPPRA DUE AT THIS TIME. PT IS AOX3. HE IS BEDBOUND AND WAS TURNED AND REPOSITIONED. IV SITES FLUSHED PATENT ON BOTH AC LEFT AND RIGHT. N/S RUNNING AT 20ML/HR. V/S FOLLOWS T 97.3 P 103 R 20 B/P 106/57 02 96% WITH R/A NO S/S OF PAIN OR DISTRESS NOTED.
[2018-07-16] MEDS: DOCUSATE SODIUM 100 MG GELCAP PO SCH (21:36)
[2018-07-16] MEDS: levETIRAcetam 500 MG TAB PO SCH (21:37)
[2018-07-17] MEDS: ALBUTEROL SULFATE/IPRATROPIU 3 ML SOL IH SCH ×3 (06:00→19:39)
--- NOTE | 2018-07-17 06:09 | NUR ---
PT SLEEPING WITH NO SIGNS OF DISTRESS NOTED AT THIS TIME NO HHN GIVEN
[2018-07-17] MEDS: BLOOD GLUCOSE MONITORING 1 DEV DEV FS SCH ×4 (06:46→20:26)
[2018-07-17 07:02] LABS: BASOPHILS # (AUTO) 0.1 K/uL (0.00-0.22); BASOPHILS % (AUTO) 1.3 % (0.0-2.0); EOSINOPHILS % (AUTO) 0.2 % (0.0-4.0); HEMATOCRIT 25.8 % (36-52); HEMOGLOBIN 8.5 g/dL (12.0-18.0); LYMPHOCYTES # (AUTO) 2.9 K/uL (2.0-11.5); LYMPHOCYTES % (AUTO) 32.4 % (20.5-51.1); MEAN CORPUSCULAR HEMOGLOBIN 33 pg (27-31); MEAN CORPUSCULAR HGB CONC 33 g/dL (33-37); MEAN CORPUSCULAR VOLUME 101.3 fL (80-94); MONOCYTES # (AUTO) 0.3 K/uL (0.8-1.0); MONOCYTES % (AUTO) 3.6 % (1.7-9.3); NEUTROPHILS # (AUTO) 5.6 K/uL (1.8-7.7); NEUTROPHILS % (AUTO) 62.5 % (42.2-75.2); PLATELET COUNT (AUTO) 364 K/uL (140-450); RED BLOOD CELL COUNT(AUTO) 2.55 MIL/uL (4.20-6.10); RED CELL DISTRIBUTION WIDTH 16.2 % (11.6-13.7); WHITE BLOOD COUNT (AUTO) 8.9 K/uL (4.8-10.8)
--- NOTE | 2018-07-17 07:25 | NUR ---
REPORT GIVEN TO VINCENT RN DAYSHIFT NURSE FOR CONTINUITY OF CARE, PT IN STABLE CONDITION.
--- NOTE | 2018-07-17 07:26 | NUR ---
RECEIVED BEDSIDE REPORT FROM NASCAR DRIVER NURSE. PATIENT IS AWAKE, ALERT AND ORIENTEDX4. NO SIGNS OF DISTRESS ON RA. FALL RISK PROTOCOL IN PLACE. PATIENT IS BEDBOUND. INCONTINENT. SKIN IS INTACT. R AC SALINE LOCK. L AC NS AT 20. BOTH 20G. CLEAN, DRY AND INTACT. SEIZURE PRECAUTIONS IN PLACE. BED IN LOW POSITION. CALL LIGHT WITHIN REACH. WILL CONTINUE TO MONITOR THE PATIENT.
[2018-07-17 08:00] VITALS: BP 95/62
[2018-07-17] MEDS ORDERED: [UNRECOGNIZED DRUG - CODE] PO (08:20)
[2018-07-17 08:32] LABS: ANION GAP 7.7 (8-16); CARBON DIOXIDE 27.2 mmol/L (21-32); CREATININE 0.6 mg/dL (0.7-1.3); POTASSIUM 4.9 mmol/L (3.5-5.1)
--- NOTE | 2018-07-17 08:34 | NUR ---
PATIENT HAS BEEN SCREENED AND CATEGORIZED HIGH NUTRITION RISK. PATIENT WILL BE SEEN WITHIN 1-2 DAYS OF ADMISSION. 07/17/18-07/18/[address]
[2018-07-17] MEDS: levETIRAcetam 500 MG TAB PO SCH ×2 (08:47→20:30)
[2018-07-17] MEDS: AMYLASE/LIPASE/PROTEASE 1 CAPDR PO SCH ×3 (08:48→17:56)
[2018-07-17] MEDS: TAMSULOSIN 0.4 MG CAP PO SCH (08:51)
[2018-07-17] MEDS: LACTOBACILLUS RHAMNOSUS GG 1 EACH CAP PO SCH (08:52)
[2018-07-17] MEDS: DOCUSATE SODIUM 100 MG GELCAP PO SCH ×2 (08:52→20:30)
[2018-07-17] MEDS: metFORMIN 850 MG TAB PO SCH ×2 (08:52→17:55)
[2018-07-17] MEDS: ASPIRIN 81 MG TAB.CHEW PO SCH (08:52)
[2018-07-17] MEDS: GABAPENTIN 300 MG CAP PO SCH ×3 (08:53→17:56)
[2018-07-17] MEDS: METOPROLOL SUCCINATE 50 MG TABER PO SCH (08:54)
[2018-07-17] MEDS: LISINOPRIL 5 MG TAB PO SCH (08:55)
--- NOTE | 2018-07-17 08:55 | NUR ---
ADMINISTERED MEDS. PATIENT TOLERATED WELL. WILL CONTINUE TO MONITOR THE PATIENT
[2018-07-17 09:14] LABS: MAGNESIUM 1.6 mg/dL (1.8-2.4); PHOSPHORUS 3.5 mg/dL (2.5-4.9)
--- NOTE | 2018-07-17 10:00 | NUR ---
PATIENT SITTING IN BED. NO SIGNS OF DISTRESS. BED IN LOW POSITION. CALL LIGHT WITHIN REACH.
[2018-07-17] MEDS: PIPER/TAZO 3.375GM/D5W PREMIX 50 ML IV SCH ×2 (12:04→20:31)
--- NOTE | 2018-07-17 12:22 | NUR ---
PATIENT COMPLAINTS OF DIZZINESS, BS 90. B/P 97/70 HR 98 98% RR 14. WILL TELL
[2018-07-17] MEDS ORDERED: MECLIZINE 25 MG TAB PO PRN (12:40)
[2018-07-17 12:50] LABS: FOLIC ACID > 20.00 ng/mL (>3.0)
--- NOTE | 2018-07-17 12:58 | NUR ---
ADMINISTERED PRN MED FOR DIZZINESS. PATIENT TOLERATED WELL. WILL CONTINUE TO MONITOR
--- NOTE | 2018-07-17 13:58 | NUR ---
PATIENT STATES DIZZINESS HAS WENT DOWN.
--- NOTE | 2018-07-17 14:02 | NUR ---
PT SLEEPING WITH NO SIGNS OF DISTRESS NOTED AT THIS TIME
[2018-07-17 14:03] LABS: FERRITIN 561 ng/mL (30-400); TRANSFERRIN 53 mg/dL (200-370)
--- NOTE | 2018-07-17 14:37 | NUR ---
07/17/18 RD INITIAL ASSESSMENT COMPLETED PLEASE REFER TO NUTRITION ASSESSMENT UNDER CARE ACTIVITY FOR ESTIMATED NUTRITIONAL NEEDS. 1. RECOMMEND CCHO 60 GM DIET TOLERATED 2. RECOMMEND ENSURE MAX TID 3. RECOMMEND SWALLOW EVALUATION, PT REPORTS DIFFICULTY SWALLOWING 4. RECOMMEND MULTIVITAMIN QD 5. RD PROVIDED NUTRITION EDUCATION HANDOUT TO INCREASE CALORIE AND PROTEIN INTAKE 6. RD TO FOLLOW-UP 2-3 DAYS, HIGH RISK ALEXIS CRUZ, RD
--- NOTE | 2018-07-17 15:00 | NUR ---
PATIENT IN NO SIGNS OF DISTRESS. WILL CONTINUE TO MONITOR THE PATIENT
[2018-07-17] MEDS: NACL 0.9% 1,000 ML IV SCH (15:05)
--- NOTE | 2018-07-17 15:10 | NUR ---
Transplant Rn Note: Per Karina from [facility] , patient is on a 7 day bed hold and is one of their group home patients.
--- NOTE | 2018-07-17 16:31 | NUR ---
S.T. Bedside swallow eval completed See report for details. Pt presents with mild-moderate pharyngeal stage dysphagia c/b delayed initiation of swallow response as well as effortful swallow resulting in mild SOB after swallow. Also suspect possible upper GI involvement, as pt c/o sticking sensation at sternum level. No overt s/s aspiration, however. Recommend: 1) Downgrade diet texture to mechanical soft ground WITH additional sauces/gravies for added moisture. Thin liquids okay. 2) P.O. meds as tolerated. Crushed is preferred due to pt's discomfort swallowing. 3) Nsg to assist with feeding. 4) S.T. to f/u with therapy x1/1 week. Results and recommendations d/w pt and endorsed to IJEOMA Hernandez. Pt also c/o BLE pain 01/14. Time: 15:50-16:30 [id number] CJ G8997 CJ ANNA NOMS LEVEL 3
[2018-07-17] MEDS: MIRTAZAPINE 15 MG TAB PO SCH (17:56)
--- NOTE | 2018-07-17 17:59 | NUR ---
ADMINISTERED MEDS. PATIENT TOLERATED WELL. WILL CONTINUE TO MONITOR THE PATIENT
[2018-07-17] MEDS ORDERED: LOPERAMIDE 2 MG CAP PO PRN (18:20)
--- NOTE | 2018-07-17 18:28 | NUR ---
SALINE LOCK PATIENT. PEER COUNSELOR WILL PICK HIM UP IN 5 MINS
--- NOTE | 2018-07-17 19:17 | NUR ---
RECEIVED REPORT FROM DAY SHIFT NURSE, NORIS, AT PT BEDSIDE. PT IN STABLE CONDITION. PT IS AAOX4. PT IS ON RA RESPIRATIONS ARE EVEN AND UNLABORED. IV ACCESS IN R AC 20G WITH IVF RUNNING PER MD ORDERS. IV IS PATENT AND INTACT. SKIN IS INTACT. PT HAS NO C/O PAIN AT THIS TIME. BED IS LOCKED, LOW POSITION WITH SIDE RAILS UP X2. CALL LIGHT IS WITHIN REACH, FALL PRECAUTIONS IN PLACE. WILL CONTINUE TO MONITOR PT.
--- NOTE | 2018-07-17 19:17 | NUR ---
GAVE BEDSIDE REPORT TO SHALE MINER BLASTING NURSE. PATIENT ENDORSED IN STABLE CONDITION
--- NOTE | 2018-07-17 20:31 | NUR ---
ADMINISTERED SCHEDULED MEDICATIONS. PT REFUSED COLACE D/T LOOSE STOOLS. BS CHECKED, 116. NO COVERAGE NEEDED PER MD ORDERS. ATTEMPTED TO COLLECT SPUTUM SAMPLE, UNSUCCESSFUL. ALL OTHER PT NEEDS ARE MET AT THIS TIME. WILL CONTINUE TO MONITOR.
[2018-07-18] VITALS: BP 113/82
--- NOTE | 2018-07-18 00:08 | NUR ---
VS TAKEN AND WITHIN NORMAL LIMITS. PT RESTING COMFORTABLY IN BED, NO SIGNS OR SYMPTOMS OF DISTRESS. WILL CONTINUE TO MONITOR.
[2018-07-18] MEDS: PIPER/TAZO 3.375GM/D5W PREMIX 50 ML IV SCH ×3 (04:40→20:33)
--- NOTE | 2018-07-18 04:40 | NUR ---
ADMINISTERED SCHEDULED ABX. PT SLEEPING COMFORTABLY IN BED. NO S/SX OF DISTRESS. WILL CONTINUE TO MONITOR.
--- NOTE | 2018-07-18 05:55 | NUR ---
BS CHECKED, 93. NO COVERAGE NEEDED PER MD ORDERS.
[2018-07-18] MEDS: BLOOD GLUCOSE MONITORING 1 DEV DEV FS SCH ×4 (05:58→20:28)
[2018-07-18 06:53] LABS: BASOPHILS # (AUTO) 0.1 K/uL (0.00-0.22); BASOPHILS % (AUTO) 1.1 % (0.0-2.0); EOSINOPHILS % (AUTO) 0.5 % (0.0-4.0); HEMOGLOBIN 8.5 g/dL (12.0-18.0); LYMPHOCYTES % (AUTO) 27.4 % (20.5-51.1); MEAN CORPUSCULAR HEMOGLOBIN 33 pg (27-31); MEAN CORPUSCULAR HGB CONC 33 g/dL (33-37); MEAN CORPUSCULAR VOLUME 100.6 fL (80-94); MONOCYTES # (AUTO) 0.4 K/uL (0.8-1.0); MONOCYTES % (AUTO) 5.4 % (1.7-9.3); NEUTROPHILS # (AUTO) 4.7 K/uL (1.8-7.7); NEUTROPHILS % (AUTO) 65.6 % (42.2-75.2); PLATELET COUNT (AUTO) 366 K/uL (140-450); RED BLOOD CELL COUNT(AUTO) 2.59 MIL/uL (4.20-6.10); RED CELL DISTRIBUTION WIDTH 16.3 % (11.6-13.7); WHITE BLOOD COUNT (AUTO) 7.2 K/uL (4.8-10.8)
--- NOTE | 2018-07-18 07:15 | NUR ---
ENDORSED PT TO DAY SHIFT NURSEMERLY FOR CONTINUITY OF CARE. PT IN STABLE CONDITION.
--- NOTE | 2018-07-18 07:24 | NUR ---
RECEIVED REPORT FROM SEDIMENTATIONIST NURSE AT PT BEDSIDE. PT IN STABLE CONDITION. PT IS AAOX4. PT IS ON RA RESPIRATIONS ARE EVEN AND UNLABORED. IV ACCESS IN R AC 20G WITH IVF RUNNING PER MD ORDERS. IV IS PATENT AND INTACT. SKIN IS INTACT. PT HAS NO C/O PAIN AT THIS TIME. BED IS LOCKED, LOW POSITION WITH SIDE RAILS UP X2. CALL LIGHT IS WITHIN REACH, FALL PRECAUTIONS IN PLACE. WILL CONTINUE TO MONITOR PT.
[2018-07-18 08:00] VITALS: BP 103/62
[2018-07-18 08:03] LABS: ANION GAP 12.6 (8-16); CREATININE 0.6 mg/dL (0.7-1.3); POTASSIUM 4.1 mmol/L (3.5-5.1)
[2018-07-18 08:12] LABS: MAGNESIUM 1.2 mg/dL (1.8-2.4)
[2018-07-18] MEDS: ALBUTEROL SULFATE/IPRATROPIU 3 ML SOL IH SCH ×3 (08:38→19:51)
[2018-07-18] MEDS: LACTOBACILLUS RHAMNOSUS GG 1 EACH CAP PO SCH (08:51)
[2018-07-18] MEDS: DOCUSATE SODIUM 100 MG GELCAP PO SCH ×2 (08:51→20:33)
[2018-07-18] MEDS: ASPIRIN 81 MG TAB.CHEW PO SCH (08:51)
[2018-07-18] MEDS: AMYLASE/LIPASE/PROTEASE 1 CAPDR PO SCH ×3 (08:51→17:46)
[2018-07-18] MEDS: metFORMIN 850 MG TAB PO SCH ×2 (08:52→17:46)
[2018-07-18] MEDS: TAMSULOSIN 0.4 MG CAP PO SCH (08:52)
[2018-07-18] MEDS: GABAPENTIN 300 MG CAP PO SCH ×3 (08:52→17:47)
[2018-07-18] MEDS: MULTIVITAMIN/MINERALS 1 TAB PO SCH (08:54)
[2018-07-18] MEDS: levETIRAcetam 500 MG TAB PO SCH ×2 (08:54→20:34)
[2018-07-18] MEDS: LISINOPRIL 5 MG TAB PO SCH (08:56)
[2018-07-18] MEDS: METOPROLOL SUCCINATE 50 MG TABER PO SCH (08:56)
[2018-07-18 09:36] LABS: CARBON DIOXIDE 23.9 mmol/L (21-32)
--- NOTE | 2018-07-18 11:09 | NUR ---
RECEIVED CALL FROM LAB, JANET, PT POSITIVE FOR MRSA OF THE NARES. WILL NOTIFY
--- NOTE | 2018-07-18 11:14 | NUR ---
RECEIVED CALL FROM LAB, GG, PT POSITIVE FOR E.COLI MDRO OF THE URINE. WILL NOTIFY
--- NOTE | 2018-07-18 11:25 | NUR ---
NOTIFIED DR. PANDA OF PT POSITIVE FOR MRSA AND E.COLI.
[2018-07-18] MEDS ORDERED: MAG SULF 2000 MG/WATER PREMIX 50 ML IV ONE (11:40)
--- NOTE | 2018-07-18 12:56 | NUR ---
Speech Pathology Note Time 12:45-12:55 Pt seen at bedside, asleep but easily arousable. Pt denied pain, but reported poor appetite and reportedly drank only liquids (coffee) at breakfast. Per IJEOMA Mares, pt is NPO for CT later this afternoon and requested that p.o. trials be held at this time. Will reattempt tomorrow 07/19/18. G8997 TIFFANY CASTILLO NOMS level 3
[2018-07-18] MEDS: MAGNESIUM SULFATE 1GM in DEXTROSE 5% 100 ML PREMIX IV SCH ×2 (12:58→15:02)
[2018-07-18] MEDS: MUPIROCIN CA NASAL 2% 1GM TUBE NS SCH (13:44)
--- NOTE | 2018-07-18 14:02 | NUR ---
PT IN STABLE CONDIITON. NO COMPLAINTS OF PAIN. BED IN LOW POSITION, CALL LIGHT WITHIN REACH.
[2018-07-18] MEDS: CHLORHEXADINE GLUC 2% CLOTH TP SCH (15:03)
[2018-07-18] MEDS: NACL 0.9% 1,000 ML IV SCH (15:05)
[2018-07-18 16:00] VITALS: BP 114/69
[2018-07-18] MEDS: MIRTAZAPINE 15 MG TAB PO SCH (17:46)
--- NOTE | 2018-07-18 17:52 | NUR ---
SPOKE WITH SISTER BELLA AT BEDSIDE. SISTER REQUESTS TO TALK TO WILL ENDORSE TO INSTALL TECHNICIAN AND TOLD SISTER TO CALL STATION AND ASK FOR UPDATE NEEDED.
--- NOTE | 2018-07-18 19:20 | NUR ---
RECEIVED REPORT FROM DAY SHIFT NURSE, MERLY, AT PT BEDSIDE. PT IN STABLE CONDITION. PT IS AAOX4. PT IS ON RA RESPIRATIONS ARE EVEN AND UNLABORED. IV ACCESS IN R AC 20G WITH IVF RUNNING PER MD ORDERS. IV IS PATENT AND INTACT. SKIN IS INTACT. PT HAS NO C/O PAIN AT THIS TIME. BED IS LOCKED, LOW POSITION WITH SIDE RAILS UP X2. CALL LIGHT IS WITHIN REACH, FALL PRECAUTIONS IN PLACE. WILL CONTINUE TO MONITOR PT. Addendum: 07/19/18 at 0342 by Alicia Walters RN PT REMINDED THE SPUTUM SAMPLE IS STILL NEEDED. SAMPLE CUP IS AT BEDSIDE. PT ACKNOWLEDGES BUT CANNOT PRODUCE AT THIS TIME.
--- NOTE | 2018-07-18 19:36 | NUR ---
ENDORSED PT TO CHOCOLATE PACKER FOR CONTINUITY OF CARE. PT IN STABLE CONDITION.
--- NOTE | 2018-07-18 19:49 | NUR ---
CONSENT OBTAINED FOR CT OF ABDOMEN AND PELVIS W/ CONTRAST.
--- NOTE | 2018-07-18 20:07 | NUR ---
BS CHECKED, 95 NO COVERAGE NEEDED PER MD ORDERS. RT AT BEDSIDE. PT HAS NO S/SX OF DISTRESS. WILL CONTINUE TO MONITOR.
--- NOTE | 2018-07-18 20:34 | NUR ---
ADMINISTERED SCHEDULED MEDICATIONS. PT REFUSED COLACE D/T LOOSE STOOLS. PT TOLERATED WELL. NO S/SX OF DISTRESS. WILL CONTINUE TO MONITOR.
--- NOTE | 2018-07-18 22:20 | NUR ---
RADIOLOGY TECHS HERE TO TAKE PT TO CT. PT IN STABLE CONDITION.
--- NOTE | 2018-07-18 22:47 | NUR ---
PT BACK FROM CT SCAN. PT CONNECTED BACK TO IV. PT IN STABLE CONDITION.
[2018-07-19] VITALS: BP 104/70
[2018-07-19] MEDS: NACL 0.9% 1,000 ML IV SCH (02:56)
--- NOTE | 2018-07-19 02:57 | NUR ---
NEW BAG OF IVF STARTED. PT ASLEEP IN BED. NO S/SX OF DISTRESS. WILL CONTINUE TO MONITOR.
[2018-07-19] MEDS: PIPER/TAZO 3.375GM/D5W PREMIX 50 ML IV SCH ×2 (04:54→13:00)
--- NOTE | 2018-07-19 04:54 | NUR ---
SCHEDULED MEDICATION ADMINISTERED. PT SLEEPING COMFORTABLY IN BED. NO S/SX OF DISTRESS. WILL CONTINUE TO MONITOR.
[2018-07-19] MEDS: BLOOD GLUCOSE MONITORING 1 DEV DEV FS SCH ×2 (05:49→11:52)
--- NOTE | 2018-07-19 05:49 | NUR ---
BS CHECKED, 83. NO COVERAGE NEEDED PER MD ORDERS.
[2018-07-19 07:14] LABS: BASOPHILS # (AUTO) 0.1 K/uL (0.00-0.22); BASOPHILS % (AUTO) 1.6 % (0.0-2.0); EOSINOPHILS % (AUTO) 0.2 % (0.0-4.0); HEMATOCRIT 25.3 % (36-52); HEMOGLOBIN 8.4 g/dL (12.0-18.0); LYMPHOCYTES # (AUTO) 1.5 K/uL (2.0-11.5); LYMPHOCYTES % (AUTO) 25.5 % (20.5-51.1); MEAN CORPUSCULAR HEMOGLOBIN 33 pg (27-31); MEAN CORPUSCULAR HGB CONC 33 g/dL (33-37); MEAN CORPUSCULAR VOLUME 100.5 fL (80-94); MONOCYTES # (AUTO) 0.3 K/uL (0.8-1.0); MONOCYTES % (AUTO) 5.1 % (1.7-9.3); NEUTROPHILS # (AUTO) 4.1 K/uL (1.8-7.7); NEUTROPHILS % (AUTO) 67.6 % (42.2-75.2); PLATELET COUNT (AUTO) 362 K/uL (140-450); RED BLOOD CELL COUNT(AUTO) 2.52 MIL/uL (4.20-6.10); RED CELL DISTRIBUTION WIDTH 16.3 % (11.6-13.7); WHITE BLOOD COUNT (AUTO) 6.1 K/uL (4.8-10.8)
[2018-07-19] MEDS: ALBUTEROL SULFATE/IPRATROPIU 3 ML SOL IH SCH ×2 (07:14→13:29)
--- NOTE | 2018-07-19 07:15 | NUR ---
ENDORSED PT TO DAY SHIFT NURSE FOR CONTINUITY OF CARE. PT IN STABLE CONDITION.
--- NOTE | 2018-07-19 07:28 | NUR ---
RECEIVED REPORT FROM SAFETY LEAD NURSE NATALY AT PT BEDSIDE. PT IN STABLE CONDITION. PT IS AAOX4. PT IS ON RA RESPIRATIONS ARE EVEN AND UNLABORED. IV ACCESS IN R AC 20G WITH IVF RUNNING PER MD ORDERS. IV IS PATENT AND INTACT. SKIN IS INTACT. PT HAS NO C/O PAIN AT THIS TIME. BED IS LOCKED, LOW POSITION WITH SIDE RAILS UP X2. CALL LIGHT IS WITHIN REACH, FALL PRECAUTIONS IN PLACE. WILL CONTINUE TO MONITOR PT.
[2018-07-19 08:00] VITALS: BP 107/65
[2018-07-19] MEDS: GABAPENTIN 300 MG CAP PO SCH ×2 (08:04→13:25)
[2018-07-19] MEDS: TAMSULOSIN 0.4 MG CAP PO SCH (08:04)
[2018-07-19] MEDS: LACTOBACILLUS RHAMNOSUS GG 1 EACH CAP PO SCH (08:04)
[2018-07-19] MEDS: AMYLASE/LIPASE/PROTEASE 1 CAPDR PO SCH ×2 (08:04→13:24)
[2018-07-19] MEDS: ASPIRIN 81 MG TAB.CHEW PO SCH (08:04)
[2018-07-19] MEDS: METOPROLOL SUCCINATE 50 MG TABER PO SCH (08:05)
[2018-07-19] MEDS: MULTIVITAMIN/MINERALS 1 TAB PO SCH (08:05)
[2018-07-19] MEDS: levETIRAcetam 500 MG TAB PO SCH (08:05)
[2018-07-19] MEDS: DOCUSATE SODIUM 100 MG GELCAP PO SCH (08:06)
[2018-07-19] MEDS: LISINOPRIL 5 MG TAB PO SCH (08:06)
--- NOTE | 2018-07-19 08:12 | NUR ---
ADMINISTERED MORNING MEDICATIONS TO PT. PT TOLERATED MEDS WELL. PT STATES ALL NEEDS MET AT THIS TIME. WILL CONTINUE TO ROUND FREQUENTLY. CALL LIGHT WITHIN REACH, BED IN LOW POSITION.
--- NOTE | 2018-07-19 08:18 | NUR ---
HELD METOPROLOL AND LISINOPRIL DUE TO PT BP AT 107/65. WILL CONTINUE TO MONITOR CLOSELY.
--- NOTE | 2018-07-19 08:38 | NUR ---
INFORMED OF PT SWELLING TO HANDS AND FEET. DR. PANDA STATED NO CHANGE IN STATE FROM ADMISSION TIME.
[2018-07-19 08:45] LABS: MAGNESIUM 1.1 mg/dL (1.8-2.4); PHOSPHORUS 3.2 mg/dL (2.5-4.9)
[2018-07-19 08:50] LABS: ANION GAP 11.5 (8-16); CARBON DIOXIDE 25.1 mmol/L (21-32); CREATININE 0.6 mg/dL (0.7-1.3); POTASSIUM 4.6 mmol/L (3.5-5.1)
[2018-07-19] MEDS ORDERED: AMOX-999 PO (08:59)
[2018-07-19] MEDS ORDERED: DOXY100C9 PO (08:59)
[2018-07-19] MEDS ORDERED: BACTNA NS (08:59)
[2018-07-19] MEDS ORDERED: CHLO118S2 TP (08:59)
--- NOTE | 2018-07-19 10:02 | NUR ---
PT RESTING IN BED. NO COMPLAINTS OF PAIN OR DISCOMFORT REPORTED. WILL CONTINUE TO MONITOR CLOSELY. BED IN LOW POSITION, CALL LIGHT WITHIN REACH.
[2018-07-19] MEDS ORDERED: MAG SULF 2000 MG/WATER PREMIX 50 ML IV ONE (10:15)
[2018-07-19] MEDS: MAGNESIUM SULFATE 1GM in DEXTROSE 5% 100 ML PREMIX IV SCH ×2 (10:52→13:32)
[2018-07-19 10:58] VITALS: BP 107/65
--- NOTE | 2018-07-19 11:09 | NUR ---
SPOKE WITH DEBORAH, RN FLIGHT, FROM [facility]. [place] REQUESTING MORE INFO ON PT ISOLATION.
--- NOTE | 2018-07-19 11:20 | NUR ---
RECEIVED CALLBACK FROM LAUREN CABRERA FROM [facility]. LAUREN STATES THAT PT NEEDS GUTIERRES INSERTED IN ORDER TO BE RECEIVED AT FACILITY. CONTACTED DR. PANDA TO LET HIM KNOW AND HE PUT ORDER IN FOR GUTIERRES. WILL INSERT.
[2018-07-19] MEDS ORDERED: PIPE1PDS26 IV (11:42)
--- NOTE | 2018-07-19 12:56 | NUR ---
ADMINISTERED TYLENOL TO PT. PT RATED 7/10 PAIN FOR HEADACHE. WILL ASSESS FOR MED EFFECTIVENESS. ALL OTHER NEEDS MET AT THIS TIME. BED IN LOW POSITION. SITTER AT BEDSIDE.
--- NOTE | 2018-07-19 13:11 | NUR ---
CALL PLACED TO [facility] AND SPOKE WITH REN PT CAN GO TO ROOM 127C.
[2018-07-19] MEDS: MUPIROCIN CA NASAL 2% 1GM TUBE NS SCH (13:25)
--- NOTE | 2018-07-19 13:29 | NUR ---
CALLED [facility] [phone] AND SET UP A W/C TRANSPORT [facility] BILL PT HAS NO TRANSPORT COVERAGE AND DOESN'T HAVE THE FUNDS TO PAY. CHAINER TIME IS 1730. PT WILL GO TO [facility] TO ROOM 127C [phone].
[2018-07-19] MEDS: CHLORHEXADINE GLUC 2% CLOTH TP SCH (13:57)
--- NOTE | 2018-07-19 14:21 | NUR ---
PT SLEEPING IN BED. NO SIGNS OF PAIN OR SOB NOTED. ALL NEEDS MET AT THIS TIME. BED IN LOW POSITION, CALLL LIGHT WITHIN REACH.
--- NOTE | 2018-07-19 15:40 | NUR ---
PT AWAKE AND IN STABLE CONDITION. ALL NEEDS MET AT THIS TIME. WILL CONTINUE TO ROUND FREQUENTLY.
--- NOTE | 2018-07-19 17:11 | NUR ---
GAVE REPORT TO IJEOMA RUIZ AT [facility] FOR PT TRANSPORT.
--- NOTE | 2018-07-19 17:47 | NUR ---
PT TRANSFERED TO [facility]. PT IV LEFT IN FOR CONTINUATION OF IV ABX THERAPY. PT DISCHARGE PAPERWORK/INSTRUCTIONS/TEACHING GIVEN. PT VERBALIZED UNDERSTANDING. PT IN STABLE CONDITION. SKIN INTACT UPON DISCHARGE. NO COMPLAINTS OF PAIN, NO SOB, NO SIGNS OF DISTRESS. PT LEFT VIA TRANSPORT VEHICLE ON [place]. ALL BELONGINGS TAKEN WITH PT. PRESCRIPTIONS GIVEN TO PT.
--- NOTE | 2018-07-19 18:17 | NUR ---
* ST D/C NOTE * Skilled HARBORMASTER treatment attempted. Unable to complete treatment 2/2 to pt D/Cing from [facility] to lower level of care SNF tonight @17:30. No further ST follow up recommended at [facility] at this time. CHRISTIANO
== END 2018-07-19 17:45 | DRG 291 ==
LOC: MED 12:10 → MTU 14:00
PROVIDERS: ADMIT General Practice; ATTEND General Practice
DX: I11.0 Hypertensive heart disease with heart failure (principal); J18.1 Lobar pneumonia, unspecified organism; E43 Unspecified severe protein-calorie malnutrition; N39.0 Urinary tract infection, site not specified; Z68.1 Body mass index [BMI] 19.9 or less, adult; K86.1 Other chronic pancreatitis; I50.41 Acute combined systolic (congestive) and diastolic (congestive) heart failure; G40.909 Epilepsy, unspecified, not intractable, without status epilepticus; J44.9 Chronic obstructive pulmonary disease, unspecified; F32.9 Major depressive disorder, single episode, unspecified; B96.20 Unspecified Escherichia coli [E. coli] as the cause of diseases classified elsewhere; Z16.24 Resistance to multiple antibiotics; F10.11 Alcohol abuse, in remission; K70.30 Alcoholic cirrhosis of liver without ascites; D63.8 Anemia in other chronic diseases classified elsewhere; M48.00 Spinal stenosis, site unspecified; M81.0 Age-related osteoporosis without current pathological fracture; I71.4 Abdominal aortic aneurysm, without rupture; K86.89 Other specified diseases of pancreas; M17.0 Bilateral primary osteoarthritis of knee; M16.0 Bilateral primary osteoarthritis of hip; K21.9 Gastro-esophageal reflux disease without esophagitis; E11.42 Type 2 diabetes mellitus with diabetic polyneuropathy; E83.42 Hypomagnesemia; N40.0 Benign prostatic hyperplasia without lower urinary tract symptoms; Z79.899 Other long term (current) drug therapy; Z86.73 Personal history of transient ischemic attack (TIA), and cerebral infarction without residual deficits; Z87.891 Personal history of nicotine dependence
CPT/HCPCS: 36415; 71045; 80048; 80053; 80305; 81001; 82140; 82150; 82550; 82607; 82728; 82746; 82948; 83036; 83540; 83605; 83690; 83735; 83880; 84100; 84439; 84443; 84484; 85025; 85045; 85610; 85730; 87040; 87081; 87086; 87186; 92610; 93005; 93970; 94640; 96360; 97110; 97116; 97530; 99285; J0696; J1815; J2405; J2543; J7030; J7060; J7620; J8597; Q0092; Q9967